=== PATIENT | male | born 1950 | race African-American/Black ===

== ENCOUNTER 2016-11-13 15:12 | Inpatient (IN) | payer OTHER, MEDICARE ==
[~2016-11-13] VITALS: Ht 182.9 cm; Wt 92.5 kg
[~2016-11-13 15:12] MED LIST: BACL10TA PO; CYCL10TA2 PO; DOCU-109 PO; GUAI5LIQ PO; GUAI600T47 PO; HYDR-2762 PO; IBUP-1060 PO; METO100T11 PO; METO25TA9 PO; OXYC10TA45 PO; SENN-22 PO; WARF10TA45 PO
[2016-11-13] MEDS ORDERED: IV NORMAL SALINE 1000ML BAG 1,000 ML IV SCH (15:49)
[2016-11-13] MEDS ORDERED: 0.9 % SODIUM CHLORIDE 10 ML DISP.SYRIN. IV PRN (16:00)
--- NOTE | 2016-11-13 16:02 | PHYS DOC ---
Past Medical History Past Medical History: Other Additional Past Medical Histor: valve problem, chronic back & leg pain Past Surgical History: Other Additional Past Surgical Histo: hernia repair x 2, cyst removed from neck, jaw surgery, mitral valve surger Additional Information: 1976 Alcohol Use: None Drug Use: None Adult General Chief Complaint Chief Complaint: RECTAL BLEED HPI HPI This patient is a pleasant 66-year-old male who is on chronic Coumadin and Lovenox secondary to mitral valve replacement. He presents with a potential GI bleed. Her this week he was seen and had a colonoscopy done by GI that discovered some denuded ulcers in his bowel that required bowel biopsy. It later came back the case was suffering from ischemic colitis. Patient now complains of melanotic stools with no abdominal pain, no dizziness, no chest pain, no UTI symptoms no other complains. He did stop his Coumadin and Lovenox for a colonoscopy and his last INR recorded was 1.4. Since that time he started his Coumadin again at 10 g daily. He denies any night sweats, weight loss, recent antibiotics, recent changes in medications other than his Coumadin, patient denies any trauma to his abdomen or sick contacts at home. Review of Systems Review of Systems Constitutional: Denies fever or chills [] Eyes: Denies change in visual acuity, redness, or eye pain [] HENT: Denies nasal congestion or sore throat [] Respiratory: Denies cough or shortness of breath [] Cardiovascular: No additional information not addressed in HPI [] GI: Denies abdominal pain, nausea, vomiting, he just denied any diarrhea but is complaining of dark tarry stools. : Denies dysuria or hematuria [] Musculoskeletal: Denies back pain or joint pain [] Integument: Denies rash or skin lesions [] Neurologic: Denies headache, focal weakness or sensory changes [] Endocrine: Denies polyuria or polydipsia [] Current Medications Current Medications Current Medications Medications (Trade) Dose Ordered Sig/Teresita Start Time Stop Time Status Last Admin Dose Admin Sodium Chloride (Normal Saline Flush) 10 ml QSHIFT PRN 11/13/16 16:00 11/13/16 16:17 10 ML Allergies Allergies Allergies Coded Allergies Type Severity Reaction Last Updated Verified No Known Drug Allergies 04/07/14 No Physical Exam Physical Exam Patient's vital signs are unremarkable. Constitutional: Well developed, well nourished, no acute distress, non-toxic appearance. [] HENT: Normocephalic, atraumatic, bilateral external ears normal, oropharynx moist, no oral exudates, nose normal. [] Eyes: PERRLA, EOMI, conjunctiva normal, no discharge. [] Neck: Normal range of motion, no tenderness, supple, no stridor. [] Cardiovascular:Heart rate regular rhythm, no murmur [] Lungs & Thorax: Bilateral breath sounds clear to auscultation [] Abdomen: Bowel sounds normal, soft, no tenderness, no masses, no pulsatile masses. Rectal exam shows dark melanotic school no rectal pain obvious signs rectal fissure and no hemorrhoids. Skin: Warm, dry, no erythema, no rash. [] Back: No tenderness, no CVA tenderness. [] Extremities: No tenderness, no cyanosis, no clubbing, ROM intact, no edema. [] Neurologic: Alert and oriented X 3, normal motor function, normal sensory function, no focal deficits noted. [] Psychologic: Affect normal, judgement normal, mood normal. [] Current Patient Data Vital Signs Vital Signs Date Time Temp Pulse Resp B/P (MAP) Pulse Ox O2 Delivery O2 Flow Rate FiO2 11/13/16 15:59 56 17 140/63 (88) 98 Room Air 11/13/16 15:25 98.5 98.5 Lab Values Laboratory Tests Test 11/13/16 15:35 White Blood Count 4.4 x10^3/uL (4.0-11.0) Red Blood Count 4.35 x10^6/uL (4.30-5.70) Hemoglobin 13.2 g/dL (13.0-17.5) Hematocrit 39.9 % (39.0-53.0) Mean Corpuscular Volume 92 fL (79-100) Mean Corpuscular Hemoglobin 30 pg (25-35) Mean Corpuscular Hemoglobin Concent 33 g/dL (31-37) Red Cell Distribution Width 13.2 % (11.5-14.5) Platelet Count 157 x10^3/uL (140-400) Neutrophils (%) (Auto) 40 % (31-73) Lymphocytes (%) (Auto) 45 % (24-48) Monocytes (%) (Auto) 13 % (0-9) H Eosinophils (%) (Auto) 2 % (0-3) Basophils (%) (Auto) 1 % (0-3) Neutrophils # (Auto) 1.8 x10^3uL (1.8-7.7) Lymphocytes # (Auto) 2.0 x10^3/uL (1.0-4.8) Monocytes # (Auto) 0.6 x10^3/uL (0.0-1.1) Eosinophils # (Auto) 0.1 x10^3/uL (0.0-0.7) Basophils # (Auto) 0.0 x10^3/uL (0.0-0.2) Prothrombin Time 18.0 SEC (11.7-14.0) H Prothrombin Time INR 1.6 (0.8-1.1) H PTT 40 SEC (24-38) H Stool Occult Blood Positive (NEG) Sodium Level 142 mmol/L (136-145) Potassium Level 3.9 mmol/L (3.5-5.1) Chloride Level 107 mmol/L (98-107) Carbon Dioxide Level 28 mmol/L (21-32) Anion Gap 7 (6-14) Blood Urea Nitrogen 13 mg/dL (8-26) Creatinine 0.9 mg/dL (0.7-1.3) Estimated GFR (Cockcroft-Gault) 102.5 Glucose Level 99 mg/dL (70-99) Calcium Level 8.8 mg/dL (8.5-10.1) Magnesium Level 2.2 mg/dL (1.8-2.4) Total Bilirubin 0.5 mg/dL (0.2-1.0) Direct Bilirubin 0.1 mg/dL (0.0-0.2) Aspartate Amino Transferase (AST) 23 U/L (15-37) Alanine Aminotransferase (ALT) 47 U/L (16-63) Alkaline Phosphatase 45 U/L (46-116) L Troponin I Quantitative < 0.017 ng/mL (0.000-0.055) NE-Mty-D-Type Natriuretic Peptide 120 pg/mL (0-124) Total Protein 7.0 g/dL (6.4-8.2) Albumin 3.7 g/dL (3.4-5.0) Lipase 169 U/L (73-393) Thyroid Stimulating Hormone (TSH) 1.866 uIU/mL (0.358-3.74) Laboratory Tests 11/13/16 15:35 Laboratory Tests 11/13/16 15:35 EKG EKG [] EKG timed 4:05 PM 11/13/2016 demonstrates an EKG with normal sinus rhythm and complete right bundle-branch block V1 with a RR prime patient has a heart rate of 59 which is within normal limits mild sinus bradycardia but atraumatic, WA interval is 184 which is normal QRS is 96 which is normal QTC is 436 which is normal. This is a normal EKG other than the incomplete right bundle # Radiology/Procedures Radiology/Procedures [] Course & Med Decision Making Course & Med Decision Making Pertinent Labs and Imaging studies reviewed. (See chart for details) he presented with potential upper GI bleed with melanotic stool. He also has a risks of GI bleed secondary to recent colonoscopy on Coumadin and Lovenox. He will have an appropriate GI bleeding workup to include type and screening possible bleeding given Protonix possibly octreotide if needed. [] GI physician Dr. CHAVES called us know he be arriving. Patient arrived with likely upper GI bleed there is a questionable history of ischemic colitis diagnosed by colonoscopy and local biopsy about the ulcers that were causing his wheezing. Patient is still present on Coumadin and Lovenox bridged for his mitral valve replacement therapy. Patient is a symptomatically this time no abdominal pain his hemoglobin and hematocrit are 13 and 41. He's got guaiac positive stool from below his INR is 1.6. Patient's abdomen is soft on repeat exams. Director Stage note: Internal medicine paged at 5 PM Director Stage called at of the service 5 p.m. Consult called back at 5:02 PM PM Discussed the case I presented and they agreed with admission. Time of acceptance o5:02 PM after discussing with internal medicine physician we did not start octreotide given the fact that he has no history of variceal bleeding. We did begin Protonix here in the emergency department as an IV bolus. Patient is typed and screened for blood if needed we will repeat CBCs over the course of the evening and have him follow these as well as prep him for another colonoscopy if necessary. Director Stage note: GI doctor Director Stage called at of the service ANDIE Consult called back at 5 PM Discussed the case I presented and they agreed with admission. 5 1 PM Anderson Disclaimer Dragon Disclaimer This electronic medical record was generated, in whole or in part, using a voice recognition dictation system. Departure Departure Impression: Primary Impression: GI bleed Disposition: ADMITTED INPATIENT Admitting Physician: Myriam Hayden Condition: GUARDED Referrals: ALON CONTRERAS Jr, MD (PCP) FROY ROGER MD Nov 13, 2016 16:02
[2016-11-13 16:09] LABS: BASO % 1 % (0-3); EOS % 2 % (0-3); HEMATOCRIT 39.9 % (39.0-53.0); HEMOGLOBIN 13.2 g/dL (13.0-17.5); LYMPH % 45 % (24-48); MEAN CORPUSCULAR HEMOGLOBIN 30 pg (25-35); MEAN CORPUSCULAR HGB CONC 33 g/dL (31-37); MEAN CORPUSCULAR VOLUME 92 fL (79-100); MONO % 13 % (0-9); NEUT % 40 % (31-73); PLATELET COUNT 157 x10^3/uL (140-400); RED BLOOD COUNT 4.35 x10^6/uL (4.30-5.70); RED CELL DISTRIBUTION WIDTH 13.2 % (11.5-14.5); WHITE BLOOD COUNT 4.4 x10^3/uL (4.0-11.0)
[2016-11-13] MEDS: 0.9 % SODIUM CHLORIDE 10 ML DISP.SYRIN. IV PRN ×2 (16:17→18:05)
[2016-11-13 16:20] LABS: INR 1.6 (0.8-1.1)
[2016-11-13 16:35] LABS: CALCIUM 8.8 mg/dL (8.5-10.1); CREATININE 0.9 mg/dL (0.7-1.3); GFR 102.5; POTASSIUM 3.9 mmol/L (3.5-5.1)
[2016-11-13 16:40] LABS: ALBUMIN 3.7 g/dL (3.4-5.0); DIRECT BILIRUBIN 0.1 mg/dL (0.0-0.2); MAGNESIUM 2.2 mg/dL (1.8-2.4); TOTAL BILIRUBIN 0.5 mg/dL (0.2-1.0)
[2016-11-13 16:45] LABS: BILIRUBIN,URINE NEGATIVE (NEG); GLUCOSE,URINE NEGATIVE (NEG); NITRITE,URINE NEGATIVE (NEG); PROTEIN,URINE NEGATIVE (NEG-TRACE)
[2016-11-13 16:46] LABS: NEG OBC FOB NEG; POS OBC FOB POS
[2016-11-13] MEDS ORDERED: PANTOPRAZOLE 40 MG TABLET.DR. PO ONE (17:15)
[2016-11-13 17:23] LABS: BACTERIA,URINE 0 /HPF (0-FEW); RBC,URINE 0 /HPF (0-2); SQUAMOUS EPITHELIAL CELL,UR FEW /LPF; WBC,URINE 0 /HPF (0-4)
[2016-11-13] MEDS ORDERED: FAMOTIDINE 20 MG/2 ML VIAL IVP ONE (17:30)
[2016-11-13] MEDS ORDERED: ONDANSETRON PF 4 MG/2 ML VIAL. IV PRN (18:30)
[2016-11-13 19:00] VITALS: BP 124/61
[2016-11-13 19:04] VITALS: BP 124/61
[2016-11-13] MEDS ORDERED: POLY17PO29 PO (19:59)
[2016-11-13] MEDS: IV NORMAL SALINE 1000ML BAG 1,000 ML IV SCH (20:00)
--- NOTE | 2016-11-13 20:11 | PDOC1 ---
History and Physical Date of Admission Date of Admission DATE: 11/13/16 TIME: 20:05 Identification/Chief Complaint Chief Complaint dark stools, Problems: Source Source: Chart review, Patient History of Present Illness History of Present Illness dark stools for 5 days, has recent scope by Dr. Ramírez, patient has history of ulcerative or ischemic colitis He presents with a potential GI bleed, recent colonoscopy w/ some denuded ulcers in his bowel that required bowel biopsy Patient now complains of melanotic stools with no abdominal pain, no dizziness , no chest pain, no UTI symptoms no other complains. no other change in history he has restarted his coumadin 10mg daily He has [facility] mitral valve replacement, and requires coumadin and is currently bridging with Lovenox, he works at the [employer] Past Medical History Cardiovascular: CHF, HTN, Hyperlipidemia, Valve insufficiency, Other Pulmonary: No pertinent hx CENTRAL NERVOUS SYSTEM: Other GI: No pertinent hx Heme/Onc: Anemia NOS, Other Hepatobiliary: No pertinent hx Psych: No pertinent hx Musculoskeletal: Osteoarthritis Rheumatologic: No pertinent hx Infectious disease: No pertinent hx Renal/: No pertinent hx Endocrine: No pertinent hx Past Surgical History Past Surgical History: Hernia Repair, Tonsillectomy, Other Family History Family History: No Significant Social History Smoke: Quit (40 yrs ago) ALCOHOL: rare Drugs: None Current Problem List Problem List Problems Medical Problems: (1) GI bleed Status: Acute Problems: Current Medications Current Medications Current Medications Sodium Chloride (Normal Saline Flush) 10 ml QSHIFT PRN IV AFTER MEDS AND BLOOD DRAWS Last administered on 11/13/16 18:05; Start 11/13/16 at 16:00 Sodium Chloride 1,000 ml @ 1,000 mls/hr Q1H IV Last administered on 11/13/16 16:18; Start 11/13/16 at 15:49; Stop 11/13/16 at 16:48; Status DC Sodium Chloride (Normal Saline Flush) 10 ml QSHIFT PRN IV AFTER MEDS AND BLOOD DRAWS Last administered on 11/13/16 16:17; Start 11/13/16 at 16:00 Pantoprazole Sodium (Protonix) 40 mg 1X ONCE PO ; Start 11/13/16 at 17:15; Stop 11/13/16 at 17:32; Status DC Famotidine (Pepcid) 20 mg 1X ONCE IVP Last administered on 11/13/16 18:05; Start 11/13/16 at 17:30; Stop 11/13/16 at 17:35; Status DC Ondansetron HCl (Zofran) 4 mg PRN Q8HRS PRN IV NAUSEA/VOMITING; Start 11/13/16 at 18:30; Stop 11/14/16 at 18:29 Sodium Chloride 1,000 ml @ 125 mls/hr Q8H IV Last administered on 11/13/16 20: 00; Start 11/13/16 at 18:20; Stop 11/14/16 at 18:19 Pantoprazole Sodium (Protonix) 40 mg DAILYAC PO ; Start 11/14/16 at 07:30 Active Scripts Active Senna-Time S Tablet (Sennosides/Docusate Sodium) 1 Each Tablet 1 Tab PO PRN BID PRN Metoprolol Succinate ( Xl ) (Metoprolol Succinate) 100 Mg Tab.er.24h 100 Mg PO DAILY Mucinex (Guaifenesin) 600 Mg Tablet.er 600 Mg PO BID Guaifenesin-Codeine Syrup (Guaifenesin/Codeine Phosphate) 5 Ml Liquid 5 Ml PO PRN Q6HRS PRN Colace (Docusate Sodium) 100 Mg Capsule 100 Mg PO PRN BID PRN Reported Miralax (Polyethylene Glycol 3350) 17 Gm Powd.pack 1 Packet PO DAILY Coumadin (Warfarin Sodium) 10 Mg Tablet 1 Tab PO DAILY Oxycontin (Oxycodone HCl) 10 Mg Tab.er.12h 1 Tab PO BID Baclofen 10 Mg Tablet 10 Mg PO QID Hydrocodone-Apap 7.5-325 (Hydrocodone Bit/Acetaminophen) 1 Each Tablet 1-2 Tab PO Q4-6HRS Allergies Allergies: Coded Allergies: No Known Drug Allergies (Unverified , 04/07/14) ROS General: No: Chills, Night Sweats, Fatigue, Malaise, Appetite, Other PSYCHOLOGICAL ROS: No: Anxiety, Behavioral Disorder, Concentration difficultie , Decreased libido, Depression, Disorientation, Hallucinations, Hostility, Irritablity, Memory difficulties, Mood Swings, Obsessive thoughts, Physical abuse, Sexual abuse, Sleep disturbances, Suicidal ideation, Other HEENT: No: Heacaches, Visual Changes, Hearing change, Nasal congestion, Nasal discharge, Oral lesions, Sinus pain, Sore Throat, Epistaxis, Sneezing, Snoring, Tinnitus, Vertigo, Vocal changes, Other Respiratory: No: Cough, Hemoptysis, Orthopnea, Pleuritic Pain, Shortness of breath, SOB with excertion, Sputum Changes, Stridor, Tachypnea, Wheezing, Other Cardiovascular: No Chest Pain, No Palpitations, No Orthopnea, No Paroxysmal Noc. Dyspnea, No Edema, No Lt Headedness, No Other Gastrointestinal: Yes Melena, No Nausea, No Vomiting, No Abdominal Pain, No Diarrhea, No Constipation, No Hematochezia, No Other Genitourinary: No Dysuria, No Frequency, No Incontinence, No Hematuria, No Retention, No Discharge, No Urgency, No Pain, No Flank Pain, No Other, No , No , No , No , No , No , No Musculoskeletal: No Gait Disturbance, No Joint Pain, No Joint Stiffness, No Joint Swelling, No Muscle Pain, No Muscular Weakness, No Pain In:, No Swelling In:, No Other Neurological: No Behavorial Changes, No Bowel/Bladder ControlChng, No Confusion , No Dizziness, No Gait Disturbance, No Headaches, No Impaired Coord/balance, No Memory Loss, No Numbness/Tingling, No Seizures, No Speech Problems, No Tremors, No Visual Changes, No Weakness, No Other Skin: No Dry Skin, No Eczema, No Hair Changes, No Lumps, No Mole Changes, No Mottling, No Nail Changes, No Pruritus, No Rash, No Skin Lesion Changes, No Other, No Acne Physical Exam General: Alert, Oriented X3, Cooperative, No acute distress HEENT: Atraumatic, PERRLA, EOMI, Mucous membr. moist/pink Lungs: Clear to auscultation, Normal air movement Heart: no gallops, no murmurs Abdomen: Normal bowel sounds, Soft Rectal Exam: not examined Extremities: No clubbing, No edema, Normal pulses Skin: No rashes, No significant lesion Neuro: Normal speech, Normal tone, Sensation intact, Cranial nerves 3-12 NL Psych/Mental Status: Mental status NL, Mood NL Vitals Vitals Vital Signs Date Time Temp Pulse Resp B/P (MAP) Pulse Ox O2 Delivery O2 Flow Rate FiO2 11/13/16 19:04 98.9 50 16 124/61 (82) 94 Room Air 98.9 Labs Labs Laboratory Tests Test 11/13/16 15:35 11/13/16 16:30 White Blood Count 4.4 x10^3/uL (4.0-11.0) Red Blood Count 4.35 x10^6/uL (4.30-5.70) Hemoglobin 13.2 g/dL (13.0-17.5) Hematocrit 39.9 % (39.0-53.0) Mean Corpuscular Volume 92 fL (79-100) Mean Corpuscular Hemoglobin 30 pg (25-35) Mean Corpuscular Hemoglobin Concent 33 g/dL (31-37) Red Cell Distribution Width 13.2 % (11.5-14.5) Platelet Count 157 x10^3/uL (140-400) Neutrophils (%) (Auto) 40 % (31-73) Lymphocytes (%) (Auto) 45 % (24-48) Monocytes (%) (Auto) 13 % (0-9) Eosinophils (%) (Auto) 2 % (0-3) Basophils (%) (Auto) 1 % (0-3) Neutrophils # (Auto) 1.8 x10^3uL (1.8-7.7) Lymphocytes # (Auto) 2.0 x10^3/uL (1.0-4.8) Monocytes # (Auto) 0.6 x10^3/uL (0.0-1.1) Eosinophils # (Auto) 0.1 x10^3/uL (0.0-0.7) Basophils # (Auto) 0.0 x10^3/uL (0.0-0.2) Prothrombin Time 18.0 SEC (11.7-14.0) Prothromb Time International Ratio 1.6 (0.8-1.1) Activated Partial Thromboplast Time 40 SEC (24-38) Stool Occult Blood Positive (NEG) Sodium Level 142 mmol/L (136-145) Potassium Level 3.9 mmol/L (3.5-5.1) Chloride Level 107 mmol/L (98-107) Carbon Dioxide Level 28 mmol/L (21-32) Anion Gap 7 (6-14) Blood Urea Nitrogen 13 mg/dL (8-26) Creatinine 0.9 mg/dL (0.7-1.3) Estimated GFR (Cockcroft-Gault) 102.5 Glucose Level 99 mg/dL (70-99) Calcium Level 8.8 mg/dL (8.5-10.1) Magnesium Level 2.2 mg/dL (1.8-2.4) Total Bilirubin 0.5 mg/dL (0.2-1.0) Direct Bilirubin 0.1 mg/dL (0.0-0.2) Aspartate Amino Transf (AST/SGOT) 23 U/L (15-37) Alanine Aminotransferase (ALT/SGPT) 47 U/L (16-63) Alkaline Phosphatase 45 U/L (46-116) Troponin I Quantitative < 0.017 ng/mL (0.000-0.055) VX-Ogj-S-Type Natriuretic Peptide 120 pg/mL (0-124) Total Protein 7.0 g/dL (6.4-8.2) Albumin 3.7 g/dL (3.4-5.0) Lipase 169 U/L (73-393) Thyroid Stimulating Hormone (TSH) 1.866 uIU/mL (0.358-3.74) Urine Collection Type Unknown Urine Color Yellow Urine Clarity Clear Urine pH 7.0 Urine Specific [place] 1.010 Urine Protein Negative mg/dL (NEG-TRACE) Urine Glucose (UA) Negative mg/dL (NEG) Urine Ketones (Stick) Negative mg/dL (NEG) Urine Blood Negative (NEG) Urine Nitrite Negative (NEG) Urine Bilirubin Negative (NEG) Urine Urobilinogen Dipstick 1.0 mg/dL (0.2 mg/dL) Urine Leukocyte Esterase Trace (NEG) Urine RBC 0 /HPF (0-2) Urine WBC 0 /HPF (0-4) Urine Squamous Epithelial Cells Few /LPF Urine Bacteria 0 /HPF (0-FEW) Urine Mucus Slight /LPF Laboratory Tests Test 11/13/16 15:35 11/13/16 16:30 White Blood Count 4.4 x10^3/uL (4.0-11.0) Red Blood Count 4.35 x10^6/uL (4.30-5.70) Hemoglobin 13.2 g/dL (13.0-17.5) Hematocrit 39.9 % (39.0-53.0) Mean Corpuscular Volume 92 fL (79-100) Mean Corpuscular Hemoglobin 30 pg (25-35) Mean Corpuscular Hemoglobin Concent 33 g/dL (31-37) Red Cell Distribution Width 13.2 % (11.5-14.5) Platelet Count 157 x10^3/uL (140-400) Neutrophils (%) (Auto) 40 % (31-73) Lymphocytes (%) (Auto) 45 % (24-48) Monocytes (%) (Auto) 13 % (0-9) Eosinophils (%) (Auto) 2 % (0-3) Basophils (%) (Auto) 1 % (0-3) Neutrophils # (Auto) 1.8 x10^3uL (1.8-7.7) Lymphocytes # (Auto) 2.0 x10^3/uL (1.0-4.8) Monocytes # (Auto) 0.6 x10^3/uL (0.0-1.1) Eosinophils # (Auto) 0.1 x10^3/uL (0.0-0.7) Basophils # (Auto) 0.0 x10^3/uL (0.0-0.2) Prothrombin Time 18.0 SEC (11.7-14.0) Prothromb Time International Ratio 1.6 (0.8-1.1) Activated Partial Thromboplast Time 40 SEC (24-38) Stool Occult Blood Positive (NEG) Sodium Level 142 mmol/L (136-145) Potassium Level 3.9 mmol/L (3.5-5.1) Chloride Level 107 mmol/L (98-107) Carbon Dioxide Level 28 mmol/L (21-32) Anion Gap 7 (6-14) Blood Urea Nitrogen 13 mg/dL (8-26) Creatinine 0.9 mg/dL (0.7-1.3) Estimated GFR (Cockcroft-Gault) 102.5 Glucose Level 99 mg/dL (70-99) Calcium Level 8.8 mg/dL (8.5-10.1) Magnesium Level 2.2 mg/dL (1.8-2.4) Total Bilirubin 0.5 mg/dL (0.2-1.0) Direct Bilirubin 0.1 mg/dL (0.0-0.2) Aspartate Amino Transf (AST/SGOT) 23 U/L (15-37) Alanine Aminotransferase (ALT/SGPT) 47 U/L (16-63) Alkaline Phosphatase 45 U/L (46-116) Troponin I Quantitative < 0.017 ng/mL (0.000-0.055) PT-Uih-X-Type Natriuretic Peptide 120 pg/mL (0-124) Total Protein 7.0 g/dL (6.4-8.2) Albumin 3.7 g/dL (3.4-5.0) Lipase 169 U/L (73-393) Thyroid Stimulating Hormone (TSH) 1.866 uIU/mL (0.358-3.74) Urine Collection Type Unknown Urine Color Yellow Urine Clarity Clear Urine pH 7.0 Urine Specific [place] 1.010 Urine Protein Negative mg/dL (NEG-TRACE) Urine Glucose (UA) Negative mg/dL (NEG) Urine Ketones (Stick) Negative mg/dL (NEG) Urine Blood Negative (NEG) Urine Nitrite Negative (NEG) Urine Bilirubin Negative (NEG) Urine Urobilinogen Dipstick 1.0 mg/dL (0.2 mg/dL) Urine Leukocyte Esterase Trace (NEG) Urine RBC 0 /HPF (0-2) Urine WBC 0 /HPF (0-4) Urine Squamous Epithelial Cells Few /LPF Urine Bacteria 0 /HPF (0-FEW) Urine Mucus Slight /LPF VTE Prophylaxis Ordered VTE Prophylaxis Devices: No VTE Pharmacological Prophylaxi: Yes Assessment/Plan Assessment/Plan ulcerative colitis, with possible flare due to bleeding, melena per rectum without anemia s/p mitral valve replacement, req. Coumadin or lovenox, hold both, do Heparin gtt overnight, CV consult to eval valve, may need echo, valve is quiet on exam, need anticoag despite possible blood loss, which may be modest, RAJI BRUCE MD Nov 13, 2016 20:11
[2016-11-13] MEDS ORDERED: HEPARIN for IV BOLUS 10,000 UNIT/10 ML VIAL. IV PRN (20:15)
--- NOTE | 2016-11-13 20:50 | EKG ---
[facility] [address] [place] [address] Test Date: 2016-11-13 Test Time: 16:05:40 Pat Name: BRANDEN BROWN Department: Room: 402 1 Gender: M Membership Director: : [id number] Requested By: FROY ROGER Order Number: [id number] Reading MD: Steven Michelle Measurements Intervals [place] Rate: 59 P: -48 VT: 184 QRS: 87 QRSD: 96 T: 30 QT: 436 QTc: 436 Interpretive Statements SINUS RHYTHM INCOMPLETE RIGHT BUNDLE BRANCH BLOCK NONSPECIFIC ST-T WAVE CHANGES. RI6.01 Compared to ECG 07/29/2015 09:58:31 Electronically Signed On 11-21-2016 9:00:21 CDT by Steven Michelle
[2016-11-13 21:14] LABS: HEMATOCRIT 39.8 % (39.0-53.0); RED BLOOD COUNT 4.31 x10^6/uL (4.30-5.70); RED CELL DISTRIBUTION WIDTH 13.5 % (11.5-14.5); WHITE BLOOD COUNT 5.1 x10^3/uL (4.0-11.0)
[2016-11-13] MEDS ORDERED: DOCUSATE SODIUM 100 MG CAPSULE. PO PRN (21:45)
[2016-11-13] MEDS ORDERED: SENNOSIDES/DOCUSATE 8.6/50MG TABLET. PO PRN (21:45)
[2016-11-13] MEDS: BACLOFEN 10 MG TABLET. PO SCH (22:15)
[2016-11-13] MEDS: HYDROcodone/APAP 7.5/325MG 1 TAB TABLET PO PRN (22:15)
[2016-11-13] MEDS: HEPARIN 25,000UTS/500ML PREMIX 500 ML IV PRN (22:31)
[2016-11-13 23:00] VITALS: BP 110/53
[2016-11-14] VITALS (7 sets, daily range): BP systolic 121–139; BP diastolic 49–71
[2016-11-14] MEDS: HYDROcodone/APAP 7.5/325MG 1 TAB TABLET PO PRN ×3 (03:43→20:41)
[2016-11-14] MEDS: IV NORMAL SALINE 1000ML BAG 1,000 ML IV SCH ×2 (03:43→11:37)
[2016-11-14 05:34] LABS: BASO % 1 % (0-3); EOS % 2 % (0-3); HEMATOCRIT 37.7 % (39.0-53.0); HEMOGLOBIN 12.2 g/dL (13.0-17.5); LYMPH # 1.5 x10^3/uL (1.0-4.8); LYMPH % 36 % (24-48); MEAN CORPUSCULAR HEMOGLOBIN 30 pg (25-35); MEAN CORPUSCULAR HGB CONC 32 g/dL (31-37); MEAN CORPUSCULAR VOLUME 93 fL (79-100); MONO % 13 % (0-9); NEUT % 49 % (31-73); PLATELET COUNT 141 x10^3/uL (140-400); RED BLOOD COUNT 4.06 x10^6/uL (4.30-5.70); RED CELL DISTRIBUTION WIDTH 13.4 % (11.5-14.5); WHITE BLOOD COUNT 4.1 x10^3/uL (4.0-11.0)
--- NOTE | 2016-11-14 05:47 | ACF ---
Admission Forms Criteria GASTROINTESTINAL BLEEDING, LOWER Clinical Indications for Admission to Inpatient Care ( Place 'X' for any and all applicable criteria): Admission is indicated for ANY ONE of the following(1)(2)(3)(4)(5): [ ]I. Active gross bleeding per rectum [ ]II. Inpatient admission required rather than observation care (Also use Gastrointestinal Bleeding, Lower: Observation Care as appropriate) because of ANY ONE of the following: [ ]a) Hemodynamic instability that is severe or persistent [ ]b) Anemia requiring inpatient admission as indicated by ALL of the following: [ ]1) Presence of significant clinical finding indicated by ANY ONE of the following: [ ]A. Tachycardia for age [ ]B. Orthostatic vital sign changes [ ]C. Cognitive impairment [ ]D. Heart failure [ ]E. Chest pain [ ]F. Exertional dyspnea [ ]G. Other findings suggesting inadequate perfusion (eg, peripheral or myocardial ischemia, end organ dysfunction) [ ]2) Initial (eg, emergency department, observation care) treatment with transfusion or volume replacement is judged inappropriate (due to severity of the finding) or has been ineffective [ ]c) Severe pain requiring acute inpatient management [ ]d) Absent bowel sounds with complete ileus [ ]e) Signs of intestinal obstruction or peritonitis [A] [ ]f) High-risk low platelet count [ ]g) Severe electrolyte abnormalities requiring inpatient care [ ]h) Acute renal failure [ ]i) High fever or infection requiring inpatient admission as indicated by ANY ONE of the following(8)(9): [ ]1) Appropriate outpatient or observation care antimicrobial treatment unavailable, not effective, or not feasible Documented bacteremia [ ]2) Documented bacteremia [ ]3) Temperature greater than 104.9 degrees F ( 40.5 degrees C) (oral) [ ]4) Temperature greater than 103.1 degrees F ( 39.5 degrees C) (oral) or less than 96.8 degrees F (36 degrees C) (rectal) that does not respond to all emergency treatment measures [ ]j) IV fluid to replace significant ongoing losses ( greater than 3 L/m2 per day) [ ]k) Immediate inpatient surgery needed [ ]l) Parenteral nutrition regimen that must be implemented on inpatient basis [ ]m) Other condition, treatment or monitoring requiring inpatient admission [ ]III. Unstable comorbid illness (renal, hepatic, pulmonary, hematologic, neurologic, or cardiac) [ ]IV. Failure to control bleeding after colonoscopy [ ]V. Coagulopathy [ X]. Suspected or known ischemic colitis(6) [ ]VII. Previous aortic graft placement or known aortic aneurysm Extended stay beyond goal length of stay may be needed for(3)(4)(28): [ ]a) Emergency surgery [ ]b) Coagulation abnormalities(26) [ ]c) Recurrent or persistent bleeding, continued vital sign instability(27)( 28) [ ]d) Active comorbidities (eg, renal insufficiency, heart failure, pre- existing liver disease) The original [employer] [facility] content created by [employer] has been revised. The portions of the content which have been revised are identified through the use of italic text or in bold, and [facility] has neither reviewed nor approved the modified material. All other unmodified content is copyright [employer] [facility]. Please see references footnoted in the original [employer] [facility] edition 2016 Admission Criteria Met?: Yes YOLANDA BALDERRAMA Nov 14, 2016 05:47
[2016-11-14 05:48] LABS: ALBUMIN 3.1 g/dL (3.4-5.0); CALCIUM 8.6 mg/dL (8.5-10.1); GFR 90.7; POTASSIUM 4.3 mmol/L (3.5-5.1); TOTAL BILIRUBIN 0.5 mg/dL (0.2-1.0); TOTAL PROTEIN 6.1 g/dL (6.4-8.2)
[2016-11-14 05:51] LABS: INR 1.6 (0.8-1.1); PROTHROMBIN TIME PATIENT 17.7 SEC (11.7-14.0)
[2016-11-14] MEDS: PANTOPRAZOLE 40 MG TABLET.DR. PO SCH (07:30)
[2016-11-14] MEDS: POLYETHYLENE GLYCOL 3350 17 GM PACKET. PO SCH (08:37)
[2016-11-14] MEDS: BACLOFEN 10 MG TABLET. PO SCH ×3 (08:37→20:42)
--- NOTE | 2016-11-14 09:58 | PDOC2 ---
GI CONSULT Reason For Consult: GI Bleed HPI: HPI: 66 y/o male who had screening colonoscopy w/ Dr. Ramírez 1 week ago, was told he had an ulcer related to retained stool. Prior to procedure had no GI symptoms, last Monday had 2 black stools, continued to Monday which is where he last had a bowel movement. H/o MVR, was on Coumadin and Lovenox after colonoscopy. Has noted bruising and soreness on abdomen 2/2 injections. Hgb was 13.2, now 12.1, INR 1.6, normal indices w/ normal BUN and Cr. Hemoccult was positive. H/ o constipation usually improved w/ Miralax. No n/v, reflux/heartburn, dysphagia , abd pain, change in appetite, bloating, weight loss, or hematochezia. No previous EGD. No NSAID use. Started on PO PPI here, kept NPO this morning. PMH: PMH: CHF, HTN, HLD, OA, MVR, back surgery, bilateral inguinal hernia repair, tonsillectomy, cyst removal from chest/neck FH: Family History: No pertinent hx, Other Social History: Smoke: Quit ALCOHOL: rare Drugs: None ROS: GEN: Denies fevers, chills, sweats HEENT: Denies blurred vision, sore throat CV: Denies chest pain RESP: Denies shortness of air, cough GI: Per HPI : Denies hematuria, dysuria ENDO: Denies weight changes NEURO: Denies confusion, dizziness MSK: Denies weakness, joint pain/swelling SKIN: Denies jaundice, pruritus Vitals: Vitals: Vital Signs Date Time Temp Pulse Resp B/P (MAP) Pulse Ox O2 Delivery O2 Flow Rate FiO2 11/14/16 08:43 16 11/14/16 07:00 97.9 57 122/55 (77) 97 Room Air 97.9 Labs: Labs: Laboratory Tests Test 11/13/16 15:35 11/13/16 16:30 11/13/16 21:00 11/14/16 05:00 White Blood Count 4.4 x10^3/uL (4.0-11.0) 5.1 x10^3/uL (4.0-11.0) 4.1 x10^3/uL (4.0-11.0) Red Blood Count 4.35 x10^6/uL (4.30-5.70) 4.31 x10^6/uL (4.30-5.70) 4.06 x10^6/uL (4.30-5.70) Hemoglobin 13.2 g/dL (13.0-17.5) 13.0 g/dL (13.0-17.5) 12.2 g/dL (13.0-17.5) Hematocrit 39.9 % (39.0-53.0) 39.8 % (39.0-53.0) 37.7 % (39.0-53.0) Mean Corpuscular Volume 92 fL (79-100) 92 fL (79-100) 93 fL (79-100) Mean Corpuscular Hemoglobin 30 pg (25-35) 30 pg (25-35) 30 pg (25-35) Mean Corpuscular Hemoglobin Concent 33 g/dL (31-37) 33 g/dL (31-37) 32 g/dL (31-37) Red Cell Distribution Width 13.2 % (11.5-14.5) 13.5 % (11.5-14.5) 13.4 % (11.5-14.5) Platelet Count 157 x10^3/uL (140-400) 147 x10^3/uL (140-400) 141 x10^3/uL (140-400) Neutrophils (%) (Auto) 40 % (31-73) 49 % (31-73) Lymphocytes (%) (Auto) 45 % (24-48) 36 % (24-48) Monocytes (%) (Auto) 13 % (0-9) 13 % (0-9) Eosinophils (%) (Auto) 2 % (0-3) 2 % (0-3) Basophils (%) (Auto) 1 % (0-3) 1 % (0-3) Neutrophils # (Auto) 1.8 x10^3uL (1.8-7.7) 2.0 x10^3uL (1.8-7.7) Lymphocytes # (Auto) 2.0 x10^3/uL (1.0-4.8) 1.5 x10^3/uL (1.0-4.8) Monocytes # (Auto) 0.6 x10^3/uL (0.0-1.1) 0.5 x10^3/uL (0.0-1.1) Eosinophils # (Auto) 0.1 x10^3/uL (0.0-0.7) 0.1 x10^3/uL (0.0-0.7) Basophils # (Auto) 0.0 x10^3/uL (0.0-0.2) 0.0 x10^3/uL (0.0-0.2) Prothrombin Time 18.0 SEC (11.7-14.0) 17.7 SEC (11.7-14.0) Prothromb Time International Ratio 1.6 (0.8-1.1) 1.6 (0.8-1.1) Activated Partial Thromboplast Time 40 SEC (24-38) Stool Occult Blood Positive (NEG) Sodium Level 142 mmol/L (136-145) 143 mmol/L (136-145) Potassium Level 3.9 mmol/L (3.5-5.1) 4.3 mmol/L (3.5-5.1) Chloride Level 107 mmol/L (98-107) 109 mmol/L (98-107) Carbon Dioxide Level 28 mmol/L (21-32) 28 mmol/L (21-32) Anion Gap 7 (6-14) 6 (6-14) Blood Urea Nitrogen 13 mg/dL (8-26) 13 mg/dL (8-26) Creatinine 0.9 mg/dL (0.7-1.3) 1.0 mg/dL (0.7-1.3) Estimated GFR (Cockcroft-Gault) 102.5 90.7 Glucose Level 99 mg/dL (70-99) 101 mg/dL (70-99) Calcium Level 8.8 mg/dL (8.5-10.1) 8.6 mg/dL (8.5-10.1) Magnesium Level 2.2 mg/dL (1.8-2.4) Total Bilirubin 0.5 mg/dL (0.2-1.0) 0.5 mg/dL (0.2-1.0) Direct Bilirubin 0.1 mg/dL (0.0-0.2) Aspartate Amino Transf (AST/SGOT) 23 U/L (15-37) 19 U/L (15-37) Alanine Aminotransferase (ALT/SGPT) 47 U/L (16-63) 35 U/L (16-63) Alkaline Phosphatase 45 U/L (46-116) 37 U/L (46-116) Troponin I Quantitative < 0.017 ng/mL (0.000-0.055) YU-Pey-S-Type Natriuretic Peptide 120 pg/mL (0-124) Total Protein 7.0 g/dL (6.4-8.2) 6.1 g/dL (6.4-8.2) Albumin 3.7 g/dL (3.4-5.0) 3.1 g/dL (3.4-5.0) Lipase 169 U/L (73-393) Thyroid Stimulating Hormone (TSH) 1.866 uIU/mL (0.358-3.74) Urine Collection Type Unknown Urine Color Yellow Urine Clarity Clear Urine pH 7.0 Urine Specific [place] 1.010 Urine Protein Negative mg/dL (NEG-TRACE) Urine Glucose (UA) Negative mg/dL (NEG) Urine Ketones (Stick) Negative mg/dL (NEG) Urine Blood Negative (NEG) Urine Nitrite Negative (NEG) Urine Bilirubin Negative (NEG) Urine Urobilinogen Dipstick 1.0 mg/dL (0.2 mg/dL) Urine Leukocyte Esterase Trace (NEG) Urine RBC 0 /HPF (0-2) Urine WBC 0 /HPF (0-4) Urine Squamous Epithelial Cells Few /LPF Urine Bacteria 0 /HPF (0-FEW) Urine Mucus Slight /LPF Heparin Anti-Xa Act, Unfractionated 0.75 IU/mL (0.30-0.70) 0.67 IU/mL (0.30-0.70) BUN/Creatinine Ratio 13 (6-20) Albumin/Globulin Ratio 1.0 (1.0-1.7) Allergies: Coded Allergies: No Known Drug Allergies (Unverified , 04/07/14) Medications: Current Medications Medications (Trade) Dose Ordered Sig/Teresita Route PRN Reason Start Time Stop Time Status Last Admin Dose Admin Sodium Chloride (Normal Saline Flush) 10 ml QSHIFT PRN IV AFTER MEDS AND BLOOD DRAWS 11/13/16 16:00 11/13/16 18:05 Sodium Chloride 1,000 ml @ 1,000 mls/hr Q1H IV 11/13/16 15:49 11/13/16 16:48 DC 11/13/16 16:18 Sodium Chloride (Normal Saline Flush) 10 ml QSHIFT PRN IV AFTER MEDS AND BLOOD DRAWS 11/13/16 16:00 11/13/16 16:17 Famotidine (Pepcid) 20 mg 1X ONCE IVP 11/13/16 17:30 11/13/16 17:35 DC 11/13/16 18:05 Sodium Chloride 1,000 ml @ 125 mls/hr Q8H IV 11/13/16 18:20 11/14/16 18:19 11/14/16 03:43 Heparin Sodium/ Dextrose 500 ml @ 0 mls/hr CONT PRN IV SEE I/O RECORD 11/13/16 20:15 11/13/16 22:31 Baclofen (Lioresal) 10 mg QID PO 11/13/16 22:00 11/13/16 22:15 Acetaminophen/ Hydrocodone Bitart (Lortab 7.5/325) 2 tab PRN Q4HRS PRN PO SEVERE PAIN 11/13/16 21:45 11/14/16 08:43 PE: GEN: NAD HEENT: Atraumatic, PERRL LUNGS: CTAB anteriorly HEART: RRR +murm ABD: NABS, S/ND/NT EXTREMITY: No edema SKIN: +bruising NEURO/PSYCH: A & O 3 A/P: A/P: Dark stools, hemoccult positive stool -onset last Mon, last stool Fri -Hgb from 13.2 to 12.2, normal BUN H/o MVR, most recently on Coumadin and Lovenox CRC screen -colonoscopy w/ Dr. Ramírez last week, seems likely had stercoral ulcer w/ h/o occasional constipation -- EGD tonight r/o upper GI source. ZENA GU Nov 14, 2016 09:58
--- NOTE | 2016-11-14 10:14 | PDOC2 ---
FREDERICK MCKEON [employer] 11/14/16 1014: CARDIAC CONSULT DATE OF CONSULT Date of Consult DATE: 11/14/16 TIME: 10:06 REASON FOR CONSULT Reason for Consult: Mitral valve replacement, GI Bleed REFERRING PHYSICIAN Referring Physician: Catracho SOURCE Source: Chart review, Patient HISTORY OF PRESENT ILLNESS HISTORY OF PRESENT ILLNESS This is a pleasant 66 yo male admitted for complains of black stools. Pt had a routine colonoscopy over a week ago and was noted to have ulcers in his bowel, possible colitis. Monday last week he started having black stools and continued on prompting him to come in and be admitted. He has mechanical mitral valve and he also has paroxysmal atrial flutter and chronic anticoagulation with coumadin. He stopped his coumadin last Monday. He was admitted and was started on heparin. Denies any SOA, CP, dizziness or palpitations. He saw his lamination spinner last month and echo was done and was told that he is doing well and his valve is good. Currently he is being workup by GI and denies any complaints. PAST MEDICAL HISTORY Past Medical History Cardiovascular: CHF, HTN, Hyperlipidemia, Valve insufficiency, Other (possible rheumatic disease as a child), atrial clutter Pulmonary: No pertinent hx CENTRAL NERVOUS SYSTEM: Other (No pertinent history) GI: No pertinent hx Heme/Onc: Anemia NOS, Other (chronic anticoagulation) Hepatobiliary: No pertinent hx Psych: No pertinent hx Musculoskeletal: Osteoarthritis, low back pain Rheumatologic: No pertinent hx Infectious disease: No pertinent hx ENT: Other (cold) Renal/: No pertinent hx Endocrine: No pertinent hx Dermatology: No pertinent hx PAST SURGICAL HISTORY Past Surgical History Hernia Repair (bilateral inguinal ), Tonsillectomy, Other (mechanical mitral valve placement 12/2014; jaw surgery), prior cardioversion 2015 FAMILY HISTORY Family History noncontributory to CV SOCIAL HISTORY Smoke: No ALCOHOL: none Lives: with Family CURRENT MEDICATIONS CURRENT MEDICATIONS Current Medications Medications (Trade) Dose Ordered Sig/Teresita Route PRN Reason Start Time Stop Time Status Last Admin Dose Admin Sodium Chloride (Normal Saline Flush) 10 ml QSHIFT PRN IV AFTER MEDS AND BLOOD DRAWS 11/13/16 16:00 11/13/16 18:05 Sodium Chloride 1,000 ml @ 1,000 mls/hr Q1H IV 11/13/16 15:49 11/13/16 16:48 DC 11/13/16 16:18 Sodium Chloride (Normal Saline Flush) 10 ml QSHIFT PRN IV AFTER MEDS AND BLOOD DRAWS 11/13/16 16:00 11/13/16 16:17 Famotidine (Pepcid) 20 mg 1X ONCE IVP 11/13/16 17:30 11/13/16 17:35 DC 11/13/16 18:05 Sodium Chloride 1,000 ml @ 125 mls/hr Q8H IV 11/13/16 18:20 11/14/16 18:19 11/14/16 03:43 Heparin Sodium/ Dextrose 500 ml @ 0 mls/hr CONT PRN IV SEE I/O RECORD 11/13/16 20:15 11/13/16 22:31 Baclofen (Lioresal) 10 mg QID PO 11/13/16 22:00 11/13/16 22:15 Acetaminophen/ Hydrocodone Bitart (Lortab 7.5/325) 2 tab PRN Q4HRS PRN PO SEVERE PAIN 11/13/16 21:45 11/14/16 08:43 ALLERGIES ALLERGIES: Coded Allergies: No Known Drug Allergies (Unverified , 11/14/16) ROS Review of System 14 point ROS evaluated with pertinent positives noted per HPI PHYSICAL EXAM General: Alert, Oriented X3, Cooperative, No acute distress HEENT: Atraumatic, Mucous membr. moist/pink Lungs: Clear to auscultation, Normal air movement Heart: Regular rate (SR), Normal S1, Normal S2, Other (3/6 systolic murmur to TEJAL border; ejection click audible per ausculatation) Abdomen: Soft, No tenderness Extremities: No cyanosis, No edema Skin: No breakdown, No significant lesion Neuro: Normal speech, Sensation intact Psych/Mental Status: Mental status NL, Mood NL MUSCULOSKELETAL: Osteoarthritic changes both hands VITALS VITALS Vital Signs Date Time Temp Pulse Resp B/P (MAP) Pulse Ox O2 Delivery O2 Flow Rate FiO2 11/14/16 08:43 16 11/14/16 07:00 97.9 57 122/55 (77) 97 Room Air 97.9 LABS Lab: Laboratory Tests Test 11/13/16 15:35 11/13/16 16:30 11/13/16 21:00 11/14/16 05:00 White Blood Count 4.4 x10^3/uL (4.0-11.0) 5.1 x10^3/uL (4.0-11.0) 4.1 x10^3/uL (4.0-11.0) Red Blood Count 4.35 x10^6/uL (4.30-5.70) 4.31 x10^6/uL (4.30-5.70) 4.06 x10^6/uL (4.30-5.70) Hemoglobin 13.2 g/dL (13.0-17.5) 13.0 g/dL (13.0-17.5) 12.2 g/dL (13.0-17.5) Hematocrit 39.9 % (39.0-53.0) 39.8 % (39.0-53.0) 37.7 % (39.0-53.0) Mean Corpuscular Volume 92 fL (79-100) 92 fL (79-100) 93 fL (79-100) Mean Corpuscular Hemoglobin 30 pg (25-35) 30 pg (25-35) 30 pg (25-35) Mean Corpuscular Hemoglobin Concent 33 g/dL (31-37) 33 g/dL (31-37) 32 g/dL (31-37) Red Cell Distribution Width 13.2 % (11.5-14.5) 13.5 % (11.5-14.5) 13.4 % (11.5-14.5) Platelet Count 157 x10^3/uL (140-400) 147 x10^3/uL (140-400) 141 x10^3/uL (140-400) Neutrophils (%) (Auto) 40 % (31-73) 49 % (31-73) Lymphocytes (%) (Auto) 45 % (24-48) 36 % (24-48) Monocytes (%) (Auto) 13 % (0-9) 13 % (0-9) Eosinophils (%) (Auto) 2 % (0-3) 2 % (0-3) Basophils (%) (Auto) 1 % (0-3) 1 % (0-3) Neutrophils # (Auto) 1.8 x10^3uL (1.8-7.7) 2.0 x10^3uL (1.8-7.7) Lymphocytes # (Auto) 2.0 x10^3/uL (1.0-4.8) 1.5 x10^3/uL (1.0-4.8) Monocytes # (Auto) 0.6 x10^3/uL (0.0-1.1) 0.5 x10^3/uL (0.0-1.1) Eosinophils # (Auto) 0.1 x10^3/uL (0.0-0.7) 0.1 x10^3/uL (0.0-0.7) Basophils # (Auto) 0.0 x10^3/uL (0.0-0.2) 0.0 x10^3/uL (0.0-0.2) Prothrombin Time 18.0 SEC (11.7-14.0) 17.7 SEC (11.7-14.0) Prothromb Time International Ratio 1.6 (0.8-1.1) 1.6 (0.8-1.1) Activated Partial Thromboplast Time 40 SEC (24-38) Stool Occult Blood Positive (NEG) Sodium Level 142 mmol/L (136-145) 143 mmol/L (136-145) Potassium Level 3.9 mmol/L (3.5-5.1) 4.3 mmol/L (3.5-5.1) Chloride Level 107 mmol/L (98-107) 109 mmol/L (98-107) Carbon Dioxide Level 28 mmol/L (21-32) 28 mmol/L (21-32) Anion Gap 7 (6-14) 6 (6-14) Blood Urea Nitrogen 13 mg/dL (8-26) 13 mg/dL (8-26) Creatinine 0.9 mg/dL (0.7-1.3) 1.0 mg/dL (0.7-1.3) Estimated GFR (Cockcroft-Gault) 102.5 90.7 Glucose Level 99 mg/dL (70-99) 101 mg/dL (70-99) Calcium Level 8.8 mg/dL (8.5-10.1) 8.6 mg/dL (8.5-10.1) Magnesium Level 2.2 mg/dL (1.8-2.4) Total Bilirubin 0.5 mg/dL (0.2-1.0) 0.5 mg/dL (0.2-1.0) Direct Bilirubin 0.1 mg/dL (0.0-0.2) Aspartate Amino Transf (AST/SGOT) 23 U/L (15-37) 19 U/L (15-37) Alanine Aminotransferase (ALT/SGPT) 47 U/L (16-63) 35 U/L (16-63) Alkaline Phosphatase 45 U/L (46-116) 37 U/L (46-116) Troponin I Quantitative < 0.017 ng/mL (0.000-0.055) [id number]-Type Natriuretic Peptide 120 pg/mL (0-124) Total Protein 7.0 g/dL (6.4-8.2) 6.1 g/dL (6.4-8.2) Albumin 3.7 g/dL (3.4-5.0) 3.1 g/dL (3.4-5.0) Lipase 169 U/L (73-393) Thyroid Stimulating Hormone (TSH) 1.866 uIU/mL (0.358-3.74) Urine Collection Type Unknown Urine Color Yellow Urine Clarity Clear Urine pH 7.0 Urine Specific [place] 1.010 Urine Protein Negative mg/dL (NEG-TRACE) Urine Glucose (UA) Negative mg/dL (NEG) Urine Ketones (Stick) Negative mg/dL (NEG) Urine Blood Negative (NEG) Urine Nitrite Negative (NEG) Urine Bilirubin Negative (NEG) Urine Urobilinogen Dipstick 1.0 mg/dL (0.2 mg/dL) Urine Leukocyte Esterase Trace (NEG) Urine RBC 0 /HPF (0-2) Urine WBC 0 /HPF (0-4) Urine Squamous Epithelial Cells Few /LPF Urine Bacteria 0 /HPF (0-FEW) Urine Mucus Slight /LPF Heparin Anti-Xa Act, Unfractionated 0.75 IU/mL (0.30-0.70) 0.67 IU/mL (0.30-0.70) BUN/Creatinine Ratio 13 (6-20) Albumin/Globulin Ratio 1.0 (1.0-1.7) ASSESSMENT/PLAN ASSESSMENT/PLAN 1. Rectal bleed: Hgb stable. recent colonoscopy with ulcers/colitis? GI w/u ongoing 2. Paroxysmal Atrial flutter with RVR: Presently SR. 3. 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 Abdominal bruising: recent lovenox? defer to PCP 5. Mild nonobstructive CAD: per [facility] 10/13/2014. Sees cardiology. 6. HTN Recommendations 1. Obtain recent TTE and notes from [facility] cardiology 10/2016 2. High thrombotic risk. Continue with heparin while GI w/u ongoing, resume coumadin when ok with GI. 3. Continue with home metoprolol. 4. Currently stable, supportive care. Problems: AVNI LONG MD 11/14/16 1724: CARDIAC CONSULT ALLERGIES ALLERGIES: Coded Allergies: No Known Drug Allergies (Unverified , 11/14/16) ASSESSMENT/PLAN ASSESSMENT/PLAN Patient seen and examined. Agree with above nurse practitioner note. 66-year-old male presenting with possible GI bleeding. Has a prior history of mechanical mitral valve sounds crisp on examination today. Agree with heparinization and evaluation by GI. If no acute pathology found may restart Coumadin when okay with GI. Would likely continue heparin as opposed to transitioning to Lovenox to avoid excessive anticoagulation. We'll follow along closely. Await review of outside hospital records. Problems: FREDERICK MCKEON APRN Nov 14, 2016 10:14 AVNI LONG MD Nov 14, 2016 17:24
[2016-11-14] MEDS ORDERED: METO25TA4 PO (10:29)
[2016-11-14] MEDS: METOPROLOL TART IMMED RELEASE 25 MG TABLET. PO SCH ×2 (11:40→20:42)
[2016-11-14] MEDS: MORPHINE SULFATE 4 MG/ML DISP.SYRIN. IV PRN ×2 (15:50→16:48)
--- NOTE | 2016-11-14 16:22 | PDOC ---
PROGRESS NOTES Chief Complaint Chief Complaint Melena ASSESSMENT AND PLAN: 1. Melena: appreciate GI service's help with management; EGD today. has recent scope by Dr. Ramírez: ? history of ulcerative or ischemic colitis 2. Anemia: minimal, Hgb stable in 12-13 range 3. OAC: on coumadin for mechanical mitral valve. hold, INR 1.6. currently on IV heparin (risk of thromboembolic event deemed greater than bleeding sequelae) 4. [facility] MVR: no acute issues. echo in 07/2015 with EF 55%, no significant regurg 5. HTN: well controlled on current meds. monitor 6. HLD: on statin Vitals Vitals Vital Signs Date Time Temp Pulse Resp B/P (MAP) Pulse Ox O2 Delivery O2 Flow Rate FiO2 11/14/16 15:50 16 Room Air 11/14/16 14:37 98.8 53 130/71 (90) 99 98.8 Physical Exam General: Alert, Oriented X3, Cooperative, No acute distress Heart: Regular rate (SR), Other (3/6 systolic murmur to TEJAL border; ejection click ) Abdomen: Soft, No tenderness Extremities: No cyanosis, No edema Skin: No breakdown, No significant lesion Labs LABS Laboratory Tests Test 11/13/16 16:30 11/13/16 21:00 11/14/16 05:00 11/14/16 12:39 Urine Collection Type Unknown Urine Color Yellow Urine Clarity Clear Urine pH 7.0 Urine Specific [place] 1.010 Urine Protein Negative mg/dL (NEG-TRACE) Urine Glucose (UA) Negative mg/dL (NEG) Urine Ketones (Stick) Negative mg/dL (NEG) Urine Blood Negative (NEG) Urine Nitrite Negative (NEG) Urine Bilirubin Negative (NEG) Urine Urobilinogen Dipstick 1.0 mg/dL (0.2 mg/dL) Urine Leukocyte Esterase Trace (NEG) Urine RBC 0 /HPF (0-2) Urine WBC 0 /HPF (0-4) Urine Squamous Epithelial Cells Few /LPF Urine Bacteria 0 /HPF (0-FEW) Urine Mucus Slight /LPF White Blood Count 5.1 x10^3/uL (4.0-11.0) 4.1 x10^3/uL (4.0-11.0) Red Blood Count 4.31 x10^6/uL (4.30-5.70) 4.06 x10^6/uL (4.30-5.70) Hemoglobin 13.0 g/dL (13.0-17.5) 12.2 g/dL (13.0-17.5) Hematocrit 39.8 % (39.0-53.0) 37.7 % (39.0-53.0) Mean Corpuscular Volume 92 fL (79-100) 93 fL (79-100) Mean Corpuscular Hemoglobin 30 pg (25-35) 30 pg (25-35) Mean Corpuscular Hemoglobin Concent 33 g/dL (31-37) 32 g/dL (31-37) Red Cell Distribution Width 13.5 % (11.5-14.5) 13.4 % (11.5-14.5) Platelet Count 147 x10^3/uL (140-400) 141 x10^3/uL (140-400) Heparin Anti-Xa Act, Unfractionated 0.75 IU/mL (0.30-0.70) 0.67 IU/mL (0.30-0.70) 0.56 IU/mL (0.30-0.70) Neutrophils (%) (Auto) 49 % (31-73) Lymphocytes (%) (Auto) 36 % (24-48) Monocytes (%) (Auto) 13 % (0-9) Eosinophils (%) (Auto) 2 % (0-3) Basophils (%) (Auto) 1 % (0-3) Neutrophils # (Auto) 2.0 x10^3uL (1.8-7.7) Lymphocytes # (Auto) 1.5 x10^3/uL (1.0-4.8) Monocytes # (Auto) 0.5 x10^3/uL (0.0-1.1) Eosinophils # (Auto) 0.1 x10^3/uL (0.0-0.7) Basophils # (Auto) 0.0 x10^3/uL (0.0-0.2) Prothrombin Time 17.7 SEC (11.7-14.0) Prothromb Time International Ratio 1.6 (0.8-1.1) Sodium Level 143 mmol/L (136-145) Potassium Level 4.3 mmol/L (3.5-5.1) Chloride Level 109 mmol/L (98-107) Carbon Dioxide Level 28 mmol/L (21-32) Anion Gap 6 (6-14) Blood Urea Nitrogen 13 mg/dL (8-26) Creatinine 1.0 mg/dL (0.7-1.3) Estimated GFR (Cockcroft-Gault) 90.7 BUN/Creatinine Ratio 13 (6-20) Glucose Level 101 mg/dL (70-99) Calcium Level 8.6 mg/dL (8.5-10.1) Total Bilirubin 0.5 mg/dL (0.2-1.0) Aspartate Amino Transf (AST/SGOT) 19 U/L (15-37) Alanine Aminotransferase (ALT/SGPT) 35 U/L (16-63) Alkaline Phosphatase 37 U/L (46-116) Total Protein 6.1 g/dL (6.4-8.2) Albumin 3.1 g/dL (3.4-5.0) Albumin/Globulin Ratio 1.0 (1.0-1.7) FRANCOIS BROWN MD Nov 14, 2016 16:22
[2016-11-14] MEDS: IV RINGERS,LACTATED 1000ML 1,000 ML IV SCH (17:30)
[2016-11-14] MEDS ORDERED: PROPOFOL 20 ML IV ONE (17:38)
--- NOTE | 2016-11-14 17:58 | PDOC4 ---
Operative Note Operative Note EGD Meds propofol per anesthesia Pre-op dx melena post-op dx non-erosive gastritis Plan advance diet release in am if Hg stable GELA NIÑO MD Nov 14, 2016 17:58
[2016-11-14] MEDS: ANTI-COAG MONITOR BY PHARMACY. MC PRN (18:33)
[2016-11-15] VITALS (7 sets, daily range): BP systolic 110–139; BP diastolic 49–68
[2016-11-15] MEDS: HEPARIN 25,000UTS/500ML PREMIX 500 ML IV PRN (00:13)
[2016-11-15] MEDS: HYDROcodone/APAP 7.5/325MG 1 TAB TABLET PO PRN ×5 (04:59→21:35)
[2016-11-15] MEDS: BACLOFEN 10 MG TABLET. PO SCH ×4 (07:50→21:16)
[2016-11-15] MEDS: PANTOPRAZOLE 40 MG TABLET.DR. PO SCH (07:50)
[2016-11-15] MEDS: POLYETHYLENE GLYCOL 3350 17 GM PACKET. PO SCH (07:51)
[2016-11-15] MEDS: METOPROLOL TART IMMED RELEASE 25 MG TABLET. PO SCH ×3 (07:55→23:10)
[2016-11-15] MEDS: IV RINGERS,LACTATED 1000ML 1,000 ML IV SCH (08:09)
--- NOTE | 2016-11-15 09:59 | PDOC ---
PROGRESS NOTES Chief Complaint Chief Complaint Melena ASSESSMENT AND PLAN: 1. Melena: EGD on 11/14 with nonerosive gastritis. on PPI. has recent scope by Dr. Ramírez: ? history of ulcerative or ischemic colitis 2. Anemia: minimal, Hgb stable in 12-13 range 3. OAC: on coumadin for mechanical mitral valve at home; currently on IV heparin; transition back to coumadin 4. [facility] MVR: no acute issues. echo in 07/2015 with EF 55%, no significant regurg 5. HTN: well controlled on current meds. monitor 6. HLD: on statin History of Present Illness History of Present Illness no c/o, tolerating PO w/o nausea Vitals Vitals Vital Signs Date Time Temp Pulse Resp B/P (MAP) Pulse Ox O2 Delivery O2 Flow Rate FiO2 11/15/16 09:21 14 Room Air 11/15/16 09:18 62 110/68 11/15/16 09:15 98.2 98 98.2 11/14/16 18:14 2 Physical Exam General: Alert, Oriented X3, Cooperative, No acute distress Heart: Regular rate (SR), Other (3/6 systolic murmur to TEJAL border; mechan click ) Lungs: Clear Abdomen: Normal bowel sounds, Soft, No tenderness Extremities: No cyanosis, No edema Skin: No breakdown, No significant lesion Labs LABS Laboratory Tests Test 11/14/16 12:39 11/14/16 20:45 11/15/16 04:50 Heparin Anti-Xa Act, Unfractionated 0.56 IU/mL (0.30-0.70) 0.43 IU/mL (0.30-0.70) 0.29 IU/mL (0.30-0.70) FRANCOIS BROWN MD Nov 15, 2016 09:59
[2016-11-15 10:14] LABS: CALCIUM 7.9 mg/dL (8.5-10.1); GFR 90.7; POTASSIUM 4.1 mmol/L (3.5-5.1)
[2016-11-15 10:18] LABS: BASO % 0 % (0-3); EOS % 2 % (0-3); HEMATOCRIT 34.8 % (39.0-53.0); HEMOGLOBIN 11.7 g/dL (13.0-17.5); LYMPH # 1.8 x10^3/uL (1.0-4.8); LYMPH % 49 % (24-48); MEAN CORPUSCULAR HEMOGLOBIN 31 pg (25-35); MEAN CORPUSCULAR HGB CONC 34 g/dL (31-37); MEAN CORPUSCULAR VOLUME 91 fL (79-100); MONO % 13 % (0-9); NEUT % 36 % (31-73); PLATELET COUNT 134 x10^3/uL (140-400); RED BLOOD COUNT 3.82 x10^6/uL (4.30-5.70); RED CELL DISTRIBUTION WIDTH 13.5 % (11.5-14.5); WHITE BLOOD COUNT 3.7 x10^3/uL (4.0-11.0)
[2016-11-15 10:20] LABS: INR 1.3 (0.8-1.1); PROTHROMBIN TIME PATIENT 15.4 SEC (11.7-14.0)
--- NOTE | 2016-11-15 10:35 | PDOC ---
Subjective: Subjective: Dark stool yesterday prior to EGD, less dark than previous stools, looking more normal. Tolerating PO. Objective: Objective: Reviewed other notes. D/w RN - still on Heparin, restarting Coumadin. Vital Signs: Vital Signs Date Time Temp Pulse Resp B/P (MAP) Pulse Ox O2 Delivery O2 Flow Rate FiO2 11/15/16 10:26 16 Room Air 11/15/16 09:18 62 110/68 11/15/16 09:15 98.2 98 98.2 11/14/16 18:14 2 Labs: Laboratory Tests Test 11/14/16 12:39 11/14/16 20:45 11/15/16 04:50 Heparin Anti-Xa Act, Unfractionated 0.56 IU/mL 0.43 IU/mL 0.29 IU/mL White Blood Count 3.7 x10^3/uL Red Blood Count 3.82 x10^6/uL Hemoglobin 11.7 g/dL Hematocrit 34.8 % Mean Corpuscular Volume 91 fL Mean Corpuscular Hemoglobin 31 pg Mean Corpuscular Hemoglobin Concent 34 g/dL Red Cell Distribution Width 13.5 % Platelet Count 134 x10^3/uL Neutrophils (%) (Auto) 36 % Lymphocytes (%) (Auto) 49 % Monocytes (%) (Auto) 13 % Eosinophils (%) (Auto) 2 % Basophils (%) (Auto) 0 % Neutrophils # (Auto) 1.3 x10^3uL Lymphocytes # (Auto) 1.8 x10^3/uL Monocytes # (Auto) 0.5 x10^3/uL Eosinophils # (Auto) 0.1 x10^3/uL Basophils # (Auto) 0.0 x10^3/uL Prothrombin Time 15.4 SEC Prothromb Time International Ratio 1.3 Sodium Level 142 mmol/L Potassium Level 4.1 mmol/L Chloride Level 109 mmol/L Carbon Dioxide Level 28 mmol/L Anion Gap 5 Blood Urea Nitrogen 12 mg/dL Creatinine 1.0 mg/dL Estimated GFR (Cockcroft-Gault) 90.7 Glucose Level 89 mg/dL Calcium Level 7.9 mg/dL Imaging: EGD 11/14/16: non-erosive gastritis PE: GEN: NAD LUNGS: CTAB HEART: RRR +murm ABD: NABS, S/ND/NT NEURO/PSYCH: A & O 3 A/P: Dark stools - resolving -EGD yesterday as above -Hgb from 13.2 to 12.2 to 11.7 -colonoscopy w/ Dr. Ramírez last week ?stercoral ulcer ---> requested records, not received [facility] -- Note plans to restart Coumadin - observe. ZENA GU Nov 15, 2016 10:35
[2016-11-15] MEDS: ANTI-COAG MONITOR BY PHARMACY. MC PRN (11:14)
--- NOTE | 2016-11-15 13:31 | PDOC ---
CARDIO Progress Notes Date and Time Date of Service 11/15/16 Time of Evaluation 1315 Subjective Subjective: No Chest Pain, No shortness of breath Vitals Vitals Vital Signs Date Time Temp Pulse Resp B/P (MAP) Pulse Ox O2 Delivery O2 Flow Rate FiO2 11/15/16 13:18 16 98 Room Air 11/15/16 11:00 98.9 63 110/62 (78) 98.9 11/14/16 18:14 2 Weight Weight [ ] Input and Output Intake and Output Intake and Output 11/15/16 07:00 Intake Total 2230 ml Output Total 2375 ml Balance -145 ml Intake Oral 480 ml IV Total 1750 ml Output Urine Total 2375 ml # Voids 1 Laboratory Labs Laboratory Tests Test 11/14/16 20:45 11/15/16 04:50 11/15/16 12:20 Heparin Anti-Xa Act, Unfractionated 0.43 IU/mL (0.30-0.70) 0.29 IU/mL (0.30-0.70) 0.28 IU/mL (0.30-0.70) White Blood Count 3.7 x10^3/uL (4.0-11.0) Red Blood Count 3.82 x10^6/uL (4.30-5.70) Hemoglobin 11.7 g/dL (13.0-17.5) Hematocrit 34.8 % (39.0-53.0) Mean Corpuscular Volume 91 fL (79-100) Mean Corpuscular Hemoglobin 31 pg (25-35) Mean Corpuscular Hemoglobin Concent 34 g/dL (31-37) Red Cell Distribution Width 13.5 % (11.5-14.5) Platelet Count 134 x10^3/uL (140-400) Neutrophils (%) (Auto) 36 % (31-73) Lymphocytes (%) (Auto) 49 % (24-48) Monocytes (%) (Auto) 13 % (0-9) Eosinophils (%) (Auto) 2 % (0-3) Basophils (%) (Auto) 0 % (0-3) Neutrophils # (Auto) 1.3 x10^3uL (1.8-7.7) Lymphocytes # (Auto) 1.8 x10^3/uL (1.0-4.8) Monocytes # (Auto) 0.5 x10^3/uL (0.0-1.1) Eosinophils # (Auto) 0.1 x10^3/uL (0.0-0.7) Basophils # (Auto) 0.0 x10^3/uL (0.0-0.2) Prothrombin Time 15.4 SEC (11.7-14.0) Prothromb Time International Ratio 1.3 (0.8-1.1) Sodium Level 142 mmol/L (136-145) Potassium Level 4.1 mmol/L (3.5-5.1) Chloride Level 109 mmol/L (98-107) Carbon Dioxide Level 28 mmol/L (21-32) Anion Gap 5 (6-14) Blood Urea Nitrogen 12 mg/dL (8-26) Creatinine 1.0 mg/dL (0.7-1.3) Estimated GFR (Cockcroft-Gault) 90.7 Glucose Level 89 mg/dL (70-99) Calcium Level 7.9 mg/dL (8.5-10.1) Microbiology Micro Microbiology 11/13/16 Urine Culture - Preliminary, Resulted 11/13/16 Urine Culture Result 1 (JOSE A) - Preliminary, Resulted Physical Exam HEENT: Neck Supple W Full Motion Chest: Symmetric LUNGS: Clear to Auscultation Heart: S1S2, RRR, murmurs (audible mechanical valvular click), other (tele; SR- SB) Abdomen: Soft N/T Extremities: No Edema, No Calf Tenderness Neurology: alert, oriented, follow commands Assessment Assessment 1. Melena: EGD with non-erosive gastritis. 2. Paroxysmal Atrial flutter with RVR; maintaining SR 3. S/p mechanical mitral valve; Rheumatic fever as a child 4. Mild, non-obstructive CAD 5. HTN Recommendations 1. Obtain echo report from last month. 2. Warfarin resumed; continue heparin until INR therapeutic 3. [facility] records reviewed - Cath 10/2014 revealed mild, non-obstructive CAD. - Onset of atrial flutter 07/2015 s/p DCCV 09/14/15 - S/p mitral valve replacement with a 31mm St. 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 JANIE URBAN APRN Nov 15, 2016 13:31
[2016-11-15] MEDS: WARFARIN 10 MG TABLET. PO SCH ×2 (14:23→16:39)
[2016-11-16] MEDS: HYDROcodone/APAP 7.5/325MG 1 TAB TABLET PO PRN ×5 (01:27→21:24)
[2016-11-16] MEDS: HEPARIN 25,000UTS/500ML PREMIX 500 ML IV PRN (01:30)
[2016-11-16 03:28] VITALS: BP 128/68
[2016-11-16 07:00] VITALS: BP 140/53
[2016-11-16] MEDS ORDERED: PHENOL ORAL SPRAY 177ML BOTTLE. PO PRN (08:00)
[2016-11-16] MEDS: METOPROLOL TART IMMED RELEASE 25 MG TABLET. PO SCH ×2 (08:49→21:23)
[2016-11-16] MEDS: POLYETHYLENE GLYCOL 3350 17 GM PACKET. PO SCH (08:49)
[2016-11-16] MEDS: PANTOPRAZOLE 40 MG TABLET.DR. PO SCH (08:49)
[2016-11-16] MEDS: BACLOFEN 10 MG TABLET. PO SCH ×4 (08:49→21:23)
[2016-11-16 08:53] LABS: BASO % 0 % (0-3); EOS % 3 % (0-3); HEMATOCRIT 36.4 % (39.0-53.0); HEMOGLOBIN 11.9 g/dL (13.0-17.5); LYMPH # 1.9 x10^3/uL (1.0-4.8); LYMPH % 42 % (24-48); MEAN CORPUSCULAR HEMOGLOBIN 31 pg (25-35); MEAN CORPUSCULAR HGB CONC 33 g/dL (31-37); MEAN CORPUSCULAR VOLUME 93 fL (79-100); MONO % 12 % (0-9); NEUT % 43 % (31-73); PLATELET COUNT 139 x10^3/uL (140-400); RED CELL DISTRIBUTION WIDTH 13.5 % (11.5-14.5); WHITE BLOOD COUNT 4.6 x10^3/uL (4.0-11.0)
[2016-11-16 08:55] LABS: INR 1.2 (0.8-1.1); PROTHROMBIN TIME PATIENT 14.3 SEC (11.7-14.0)
[2016-11-16 11:00] VITALS: BP 122/66
--- NOTE | 2016-11-16 11:59 | PDOC ---
PROGRESS NOTES Chief Complaint Chief Complaint Melena ASSESSMENT AND PLAN: 1. Melena: EGD on 11/14 with nonerosive gastritis. on PPI. has recent scope by Dr. Ramírez: ? history of ulcerative or ischemic colitis 2. Anemia with chronic dz and melena 3. OAC: on coumadin for mechanical mitral valve at home; currently on IV heparin; transition back to coumadin 4. [facility] MVR: echo in 07/2015 with EF 55%, no significant regurg 5. HTN: well controlled on current meds. monitor 6. HLD: on statin PAFIB plan: fu with gi , card on heparin drip bridging, cont warfarin, INR needs to be 2.5 to 3.5 monitor cbc, hb stable for now altho cont having bloody stool cannot dc till INR 2.5. discussed with pt, he is disappointed to stay longer History of Present Illness History of Present Illness no c/o, tolerating PO w/o nausea cont having bloody stool as per pt, Hb stable INR low at 1.2 , on heparin drip for bridging Vitals Vitals Vital Signs Date Time Temp Pulse Resp B/P (MAP) Pulse Ox O2 Delivery O2 Flow Rate FiO2 11/16/16 08:49 48 140/53 11/16/16 07:00 98.9 18 96 Room Air 98.9 Physical Exam General: Alert, Oriented X3, Cooperative, No acute distress Heart: Regular rate (SR), Other (3/6 systolic murmur to TEJAL border; mechan click ) Lungs: Clear Abdomen: Normal bowel sounds, Soft, No tenderness Extremities: No cyanosis, No edema Skin: No breakdown, No significant lesion Labs LABS Laboratory Tests Test 11/15/16 12:20 11/15/16 18:35 11/16/16 01:05 11/16/16 06:50 Heparin Anti-Xa Act, Unfractionated 0.28 IU/mL (0.30-0.70) 0.55 IU/mL (0.30-0.70) 0.88 IU/mL (0.30-0.70) 0.84 IU/mL (0.30-0.70) White Blood Count 4.6 x10^3/uL (4.0-11.0) Red Blood Count 3.90 x10^6/uL (4.30-5.70) Hemoglobin 11.9 g/dL (13.0-17.5) Hematocrit 36.4 % (39.0-53.0) Mean Corpuscular Volume 93 fL (79-100) Mean Corpuscular Hemoglobin 31 pg (25-35) Mean Corpuscular Hemoglobin Concent 33 g/dL (31-37) Red Cell Distribution Width 13.5 % (11.5-14.5) Platelet Count 139 x10^3/uL (140-400) Neutrophils (%) (Auto) 43 % (31-73) Lymphocytes (%) (Auto) 42 % (24-48) Monocytes (%) (Auto) 12 % (0-9) Eosinophils (%) (Auto) 3 % (0-3) Basophils (%) (Auto) 0 % (0-3) Neutrophils # (Auto) 1.9 x10^3uL (1.8-7.7) Lymphocytes # (Auto) 1.9 x10^3/uL (1.0-4.8) Monocytes # (Auto) 0.6 x10^3/uL (0.0-1.1) Eosinophils # (Auto) 0.1 x10^3/uL (0.0-0.7) Basophils # (Auto) 0.0 x10^3/uL (0.0-0.2) Prothrombin Time 14.3 SEC (11.7-14.0) Prothromb Time International Ratio 1.2 (0.8-1.1) Review of Systems Review of Systems no fever, chills, chest pain or sob Assessment and Plan Assessmemt and Plan Problems Medical Problems: (1) GI bleed Status: Acute Problems: Comment Review of Relevant I have reviewed the following items shabana (where applicable) has been applied. Labs Laboratory Tests Test 11/14/16 12:39 11/14/16 20:45 11/15/16 04:50 11/15/16 12:20 Heparin Anti-Xa Act, Unfractionated 0.56 IU/mL (0.30-0.70) 0.43 IU/mL (0.30-0.70) 0.29 IU/mL (0.30-0.70) 0.28 IU/mL (0.30-0.70) White Blood Count 3.7 x10^3/uL (4.0-11.0) Red Blood Count 3.82 x10^6/uL (4.30-5.70) Hemoglobin 11.7 g/dL (13.0-17.5) Hematocrit 34.8 % (39.0-53.0) Mean Corpuscular Volume 91 fL (79-100) Mean Corpuscular Hemoglobin 31 pg (25-35) Mean Corpuscular Hemoglobin Concent 34 g/dL (31-37) Red Cell Distribution Width 13.5 % (11.5-14.5) Platelet Count 134 x10^3/uL (140-400) Neutrophils (%) (Auto) 36 % (31-73) Lymphocytes (%) (Auto) 49 % (24-48) Monocytes (%) (Auto) 13 % (0-9) Eosinophils (%) (Auto) 2 % (0-3) Basophils (%) (Auto) 0 % (0-3) Neutrophils # (Auto) 1.3 x10^3uL (1.8-7.7) Lymphocytes # (Auto) 1.8 x10^3/uL (1.0-4.8) Monocytes # (Auto) 0.5 x10^3/uL (0.0-1.1) Eosinophils # (Auto) 0.1 x10^3/uL (0.0-0.7) Basophils # (Auto) 0.0 x10^3/uL (0.0-0.2) Prothrombin Time 15.4 SEC (11.7-14.0) Prothromb Time International Ratio 1.3 (0.8-1.1) Sodium Level 142 mmol/L (136-145) Potassium Level 4.1 mmol/L (3.5-5.1) Chloride Level 109 mmol/L (98-107) Carbon Dioxide Level 28 mmol/L (21-32) Anion Gap 5 (6-14) Blood Urea Nitrogen 12 mg/dL (8-26) Creatinine 1.0 mg/dL (0.7-1.3) Estimated GFR (Cockcroft-Gault) 90.7 Glucose Level 89 mg/dL (70-99) Calcium Level 7.9 mg/dL (8.5-10.1) Test 11/15/16 18:35 11/16/16 01:05 11/16/16 06:50 Heparin Anti-Xa Act, Unfractionated 0.55 IU/mL (0.30-0.70) 0.88 IU/mL (0.30-0.70) 0.84 IU/mL (0.30-0.70) White Blood Count 4.6 x10^3/uL (4.0-11.0) Red Blood Count 3.90 x10^6/uL (4.30-5.70) Hemoglobin 11.9 g/dL (13.0-17.5) Hematocrit 36.4 % (39.0-53.0) Mean Corpuscular Volume 93 fL (79-100) Mean Corpuscular Hemoglobin 31 pg (25-35) Mean Corpuscular Hemoglobin Concent 33 g/dL (31-37) Red Cell Distribution Width 13.5 % (11.5-14.5) Platelet Count 139 x10^3/uL (140-400) Neutrophils (%) (Auto) 43 % (31-73) Lymphocytes (%) (Auto) 42 % (24-48) Monocytes (%) (Auto) 12 % (0-9) Eosinophils (%) (Auto) 3 % (0-3) Basophils (%) (Auto) 0 % (0-3) Neutrophils # (Auto) 1.9 x10^3uL (1.8-7.7) Lymphocytes # (Auto) 1.9 x10^3/uL (1.0-4.8) Monocytes # (Auto) 0.6 x10^3/uL (0.0-1.1) Eosinophils # (Auto) 0.1 x10^3/uL (0.0-0.7) Basophils # (Auto) 0.0 x10^3/uL (0.0-0.2) Prothrombin Time 14.3 SEC (11.7-14.0) Prothromb Time International Ratio 1.2 (0.8-1.1) Laboratory Tests Test 11/15/16 12:20 11/15/16 18:35 11/16/16 01:05 11/16/16 06:50 Heparin Anti-Xa Act, Unfractionated 0.28 IU/mL (0.30-0.70) 0.55 IU/mL (0.30-0.70) 0.88 IU/mL (0.30-0.70) 0.84 IU/mL (0.30-0.70) White Blood Count 4.6 x10^3/uL (4.0-11.0) Red Blood Count 3.90 x10^6/uL (4.30-5.70) Hemoglobin 11.9 g/dL (13.0-17.5) Hematocrit 36.4 % (39.0-53.0) Mean Corpuscular Volume 93 fL (79-100) Mean Corpuscular Hemoglobin 31 pg (25-35) Mean Corpuscular Hemoglobin Concent 33 g/dL (31-37) Red Cell Distribution Width 13.5 % (11.5-14.5) Platelet Count 139 x10^3/uL (140-400) Neutrophils (%) (Auto) 43 % (31-73) Lymphocytes (%) (Auto) 42 % (24-48) Monocytes (%) (Auto) 12 % (0-9) Eosinophils (%) (Auto) 3 % (0-3) Basophils (%) (Auto) 0 % (0-3) Neutrophils # (Auto) 1.9 x10^3uL (1.8-7.7) Lymphocytes # (Auto) 1.9 x10^3/uL (1.0-4.8) Monocytes # (Auto) 0.6 x10^3/uL (0.0-1.1) Eosinophils # (Auto) 0.1 x10^3/uL (0.0-0.7) Basophils # (Auto) 0.0 x10^3/uL (0.0-0.2) Prothrombin Time 14.3 SEC (11.7-14.0) Prothromb Time International Ratio 1.2 (0.8-1.1) Microbiology 11/13/16 Urine Culture - Final, Complete 11/13/16 Urine Culture Result 1 (JOSE A) - Final, Complete Medications Current Medications Sodium Chloride (Normal Saline Flush) 10 ml QSHIFT PRN IV AFTER MEDS AND BLOOD DRAWS Last administered on 11/13/16 18:05; Start 11/13/16 at 16:00 Sodium Chloride 1,000 ml @ 1,000 mls/hr Q1H IV Last administered on 11/13/16 16:18; Start 11/13/16 at 15:49; Stop 11/13/16 at 16:48; Status DC Sodium Chloride (Normal Saline Flush) 10 ml QSHIFT PRN IV AFTER MEDS AND BLOOD DRAWS Last administered on 11/13/16 16:17; Start 11/13/16 at 16:00; Stop 11/14/16 at 10:35; Status DC Pantoprazole Sodium (Protonix) 40 mg 1X ONCE PO ; Start 11/13/16 at 17:15; Stop 11/13/16 at 17:32; Status DC Famotidine (Pepcid) 20 mg 1X ONCE IVP Last administered on 11/13/16 18:05; Start 11/13/16 at 17:30; Stop 11/13/16 at 17:35; Status DC Ondansetron HCl (Zofran) 4 mg PRN Q8HRS PRN IV NAUSEA/VOMITING; Start 11/13/16 at 18:30; Stop 11/14/16 at 18:29; Status DC Sodium Chloride 1,000 ml @ 125 mls/hr Q8H IV Last administered on 11/14/16 11: 37; Start 11/13/16 at 18:20; Stop 11/14/16 at 18:19; Status DC Pantoprazole Sodium (Protonix) 40 mg DAILYAC PO Last administered on 11/16/16 08:49; Start 11/14/16 at 07:30 Heparin Sodium/ Dextrose 500 ml @ 0 mls/hr CONT PRN IV SEE I/O RECORD Last administered on 11/16/16 01:30; Start 11/13/16 at 20:15 Heparin Sodium (Porcine) (Heparin Sodium) 2,250 unit PRN Q6HRS PRN IV FOR UFH LEVEL LESS THAN 0.2; Start 11/13/16 at 20:15 Baclofen (Lioresal) 10 mg QID PO Last administered on 11/16/16 08:49; Start 11/13/16 at 22:00 Docusate Sodium (Colace) 100 mg PRN BID PRN PO CONSTIPATION Last administered on 11/16/16 08:49; Start 11/13/16 at 21:45 Acetaminophen/ Hydrocodone Bitart (Lortab 7.5/325) 2 tab PRN Q4HRS PRN PO SEVERE PAIN Last administered on 11/16/16 06:32; Start 11/13/16 at 21:45 Polyethylene Glycol (miraLAX PACKET) 17 gm DAILY PO Last administered on 08:49; Start 11/14/16 at 09:00 Senna/Docusate Sodium (Senna Plus) 1 tab PRN BID PRN PO CONSTIPATION; Start 11/13/16 at 21:45 Metoprolol Tartrate (Lopressor) 25 mg BID PO Last administered on 11/15/16 23: 10; Start 11/14/16 at 11:00 Morphine Sulfate 2 mg PRN Q4HRS PRN IV PAIN Last administered on 11/14/16 15:50 ; Start 11/14/16 at 15:30; Stop 11/15/16 at 09:58; Status DC Info (Anti-Coagulation Monitoring By Pharmacy) 1 each PRN DAILY PRN MC SEE COMMENTS Last administered on 11/15/16 11:14; Start 11/14/16 at 17:15 Propofol 20 ml @ As Directed STK-MED ONCE IV ; Start 11/14/16 at 17:38; Stop 11/14 at 17:39; Status DC Ringer's Solution 1,000 ml @ 75 mls/hr [id number] IV Last administered on 08:09; Start 11/14/16 at 19:00; Stop 11/15/16 at 09:58; Status DC Warfarin Sodium (Coumadin) 10 mg DAILY16 PO Last administered on 11/15/16 16:39 ; Start 11/15/16 at 16:00 Warfarin Sodium (Coumadin Per Physician) 1 each PRN DAILY PRN MC SEE COMMENTS Last administered on 11/16/16 10:44; Start 11/15/16 at 10:15 Throat Lozenges (Chloraseptic) 1 spray PRN Q2HR PRN PO SORE THROAT Last administered on 11/16/16 08:49; Start 11/16/16 at 08:00 Active Scripts Active Colace (Docusate Sodium) 100 Mg Capsule 100 Mg PO PRN BID PRN Reported Metoprolol Tartrate 25 Mg Tablet 1 Tab PO BID Miralax (Polyethylene Glycol 3350) 17 Gm Powd.pack 1 Packet PO DAILY Baclofen 10 Mg Tablet 10 Mg PO QID Hydrocodone-Apap 7.5-325 (Hydrocodone Bit/Acetaminophen) 1 Each Tablet 1-2 Tab PO Q4-6HRS Vitals/I & O Vital Sign - Last 24 Hours 11/15/16 11/15/16 11/15/16 11/15/16 13:18 15:00 17:30 18:30 Temp 89.0 89.0 Pulse 69 Resp 16 16 16 B/P (MAP) 114/66 (82) Pulse Ox 98 98 98 O2 Delivery Room Air Room Air Room Air 11/15/16 11/15/16 11/15/16 11/15/16 19:30 19:41 21:35 23:03 Temp 97.9 97.5 97.9 97.5 Pulse 50 57 Resp 18 18 B/P (MAP) 112/54 (73) 139/62 (87) Pulse Ox 98 98 98 O2 Delivery Room Air Room Air Room Air Room Air 11/15/16 11/16/16 11/16/16 11/16/16 23:10 01:27 02:30 03:28 Temp 97.5 97.5 Pulse 57 53 Resp 18 B/P (MAP) 139/62 128/68 (88) Pulse Ox 98 98 100 O2 Delivery Room Air Room Air Room Air 11/16/16 11/16/16 11/16/16 06:32 07:00 08:49 Temp 98.9 98.9 Pulse 48 48 Resp 18 B/P (MAP) 140/53 (82) 140/53 Pulse Ox 100 96 O2 Delivery Room Air Room Air Intake and Output 11/15/16 11/15/16 11/16/16 15:00 23:00 07:00 Intake Total 1160 ml 850 ml Output Total 300 ml 750 ml 750 ml Balance 860 ml 100 ml -750 ml STACY LOPEZ MD Nov 16, 2016 11:59
[2016-11-16] MEDS ORDERED: DOCUSATE SODIUM 100 MG CAPSULE. PO PRN (12:00)
[2016-11-16] MEDS ORDERED: ONDANSETRON PF 4 MG/2 ML VIAL. IV PRN (12:00)
[2016-11-16] MEDS ORDERED: ACETAMINOPHEN 325 MG TABLET. PO PRN (12:00)
[2016-11-16] MEDS ORDERED: hydrALAZINE 20 MG/ML VIAL. IVP PRN (12:00)
[2016-11-16] MEDS ORDERED: traMADol 50 MG TABLET PO PRN (12:00)
[2016-11-16] MEDS ORDERED: MORPHINE SULFATE 2 MG/ML DISP.SYRIN. IV PRN (12:00)
--- NOTE | 2016-11-16 12:51 | PDOC ---
Subjective: Subjective: Denies black or red blood in stools - tells me this morning looked brown but then says he's "a little color blind." Objective: Objective: Per RN - pt told Dr. Patel he saw red blood in his stool. Probably will stay til Fri until INR therapeutic. Still no colonoscopy records - it looks like cardiology records were requested but not GI records. Vital Signs: Vital Signs Date Time Temp Pulse Resp B/P (MAP) Pulse Ox O2 Delivery O2 Flow Rate FiO2 11/16/16 11:00 98.8 52 18 122/66 (84) 95 Room Air 98.8 Labs: Laboratory Tests Test 11/15/16 18:35 11/16/16 01:05 11/16/16 06:50 Heparin Anti-Xa Act, Unfractionated 0.55 IU/mL 0.88 IU/mL 0.84 IU/mL White Blood Count 4.6 x10^3/uL Red Blood Count 3.90 x10^6/uL Hemoglobin 11.9 g/dL Hematocrit 36.4 % Mean Corpuscular Volume 93 fL Mean Corpuscular Hemoglobin 31 pg Mean Corpuscular Hemoglobin Concent 33 g/dL Red Cell Distribution Width 13.5 % Platelet Count 139 x10^3/uL Neutrophils (%) (Auto) 43 % Lymphocytes (%) (Auto) 42 % Monocytes (%) (Auto) 12 % Eosinophils (%) (Auto) 3 % Basophils (%) (Auto) 0 % Neutrophils # (Auto) 1.9 x10^3uL Lymphocytes # (Auto) 1.9 x10^3/uL Monocytes # (Auto) 0.6 x10^3/uL Eosinophils # (Auto) 0.1 x10^3/uL Basophils # (Auto) 0.0 x10^3/uL Prothrombin Time 14.3 SEC Prothromb Time International Ratio 1.2 PE: GEN: NAD LUNGS: CTAB HEART: RRR +murm ABD: NABS, S/ND/NT NEURO/PSYCH: A & O 3 A/P: Dark stools - resolving -EGD w/ non-erosive gastritis -some drift in Hgb, now stable in 11s -colonoscopy w/ Dr. Ramírez last week ?stercoral ulcer [facility] MVR -restarting Coumadin -- Will again request records of colonoscopy. Asked RN to look at color of next BM. ZENA GU Nov 16, 2016 12:51
[2016-11-16 15:00] VITALS: BP 126/56
[2016-11-16] MEDS: WARFARIN 10 MG TABLET. PO SCH (17:15)
[2016-11-16 19:00] VITALS: BP 139/60
[2016-11-16 23:00] VITALS: BP 125/66
[2016-11-17 02:06] LABS: BASO % 0 % (0-3); EOS % 3 % (0-3); HEMATOCRIT 35.9 % (39.0-53.0); HEMOGLOBIN 11.9 g/dL (13.0-17.5); LYMPH % 40 % (24-48); MEAN CORPUSCULAR HEMOGLOBIN 31 pg (25-35); MEAN CORPUSCULAR HGB CONC 33 g/dL (31-37); MEAN CORPUSCULAR VOLUME 92 fL (79-100); MONO % 12 % (0-9); NEUT % 44 % (31-73); PLATELET COUNT 144 x10^3/uL (140-400); RED BLOOD COUNT 3.89 x10^6/uL (4.30-5.70); RED CELL DISTRIBUTION WIDTH 13.8 % (11.5-14.5); WHITE BLOOD COUNT 5.1 x10^3/uL (4.0-11.0)
[2016-11-17 02:21] LABS: CALCIUM 8.1 mg/dL (8.5-10.1); GFR 90.7; POTASSIUM 3.8 mmol/L (3.5-5.1)
[2016-11-17 02:23] LABS: INR 1.2 (0.8-1.1); PROTHROMBIN TIME PATIENT 14.4 SEC (11.7-14.0)
[2016-11-17 03:00] VITALS: BP 131/60
[2016-11-17] MEDS: PANTOPRAZOLE 40 MG TABLET.DR. PO SCH (06:42)
[2016-11-17 07:00] VITALS: BP 142/55
[2016-11-17] MEDS: POLYETHYLENE GLYCOL 3350 17 GM PACKET. PO SCH (08:29)
[2016-11-17] MEDS: HYDROcodone/APAP 7.5/325MG 1 TAB TABLET PO PRN ×2 (08:29→21:14)
[2016-11-17] MEDS: METOPROLOL TART IMMED RELEASE 25 MG TABLET. PO SCH ×2 (08:31→21:09)
[2016-11-17] MEDS: BACLOFEN 10 MG TABLET. PO SCH ×4 (08:34→21:10)
--- NOTE | 2016-11-17 10:29 | PDOC ---
Subjective: Subjective: No stools since yesterday. Objective: Objective: Reviewed colonoscopy records: deep cecal ulcers and internal hemorrhoids, path c /w ischemic colitis. Vital Signs: Vital Signs Date Time Temp Pulse Resp B/P (MAP) Pulse Ox O2 Delivery O2 Flow Rate FiO2 11/17/16 09:29 16 11/17/16 08:31 18 142/55 11/17/16 08:29 Room Air 11/17/16 07:00 100.0 96 100.0 Labs: Laboratory Tests Test 11/16/16 13:00 11/16/16 20:20 11/17/16 01:45 11/17/16 08:10 Heparin Anti-Xa Act, Unfractionated 0.29 IU/mL 0.36 IU/mL 0.39 IU/mL 0.43 IU/mL White Blood Count 5.1 x10^3/uL Red Blood Count 3.89 x10^6/uL Hemoglobin 11.9 g/dL Hematocrit 35.9 % Mean Corpuscular Volume 92 fL Mean Corpuscular Hemoglobin 31 pg Mean Corpuscular Hemoglobin Concent 33 g/dL Red Cell Distribution Width 13.8 % Platelet Count 144 x10^3/uL Neutrophils (%) (Auto) 44 % Lymphocytes (%) (Auto) 40 % Monocytes (%) (Auto) 12 % Eosinophils (%) (Auto) 3 % Basophils (%) (Auto) 0 % Neutrophils # (Auto) 2.3 x10^3uL Lymphocytes # (Auto) 2.0 x10^3/uL Monocytes # (Auto) 0.6 x10^3/uL Eosinophils # (Auto) 0.2 x10^3/uL Basophils # (Auto) 0.0 x10^3/uL Prothrombin Time 14.4 SEC Prothromb Time International Ratio 1.2 Sodium Level 141 mmol/L Potassium Level 3.8 mmol/L Chloride Level 107 mmol/L Carbon Dioxide Level 29 mmol/L Anion Gap 5 Blood Urea Nitrogen 15 mg/dL Creatinine 1.0 mg/dL Estimated GFR (Cockcroft-Gault) 90.7 Glucose Level 156 mg/dL Calcium Level 8.1 mg/dL PE: GEN: NAD LUNGS: CTAB HEART: RRR +murm ABD: S/ND/NT NEURO/PSYCH: A & O 3 A/P: Dark stools - resolved -EGD w/ non-erosive gastritis, colonoscopy w/ cecal ulcers/path ischemic colitis -Hgb stable Mech MVR -back on Coumadin, awaiting therapeutic INR -- Bleeding seems to have resolved w/ stable Hgb. Will review colonoscopy report w/ Dr. Anderson. D/w Dr. Patel, RN. ZENA GU Nov 17, 2016 10:29
[2016-11-17 11:00] VITALS: BP 129/67
--- NOTE | 2016-11-17 11:30 | PDOC ---
PROGRESS NOTES Chief Complaint Chief Complaint Melena ASSESSMENT AND PLAN: 1. Melena: EGD on 11/14 with nonerosive gastritis. on PPI. has recent scope by Dr. Ramírez with cecal ischemic colitis 2. Anemia with chronic dz and melena 3. OAC: on coumadin for mechanical mitral valve at home; currently on IV heparin; transition back to coumadin 4. [facility] MVR: echo in 07/2015 with EF 55%, no significant regurg 5. HTN 6. HLD PAFIB plan: fu with gi , card on heparin drip bridging, cont warfarin, INR needs to be 2.5 to 3.5 monitor cbc, hb stable for now altho cont having bloody stool talked to gi, and card, will change to lovenox bid ,dc heparin drip, cont warfarin dc tmr with lovenox bid home , pt checks his INR daily at home, can stop lovenox sq once INR is 2.5. pt understands History of Present Illness History of Present Illness no c/o, tolerating PO w/o nausea cont having bloody stool 11/16 as per pt, Hb stable NO bm TODAY INR low at 1.2 , on heparin drip for bridging Vitals Vitals Vital Signs Date Time Temp Pulse Resp B/P (MAP) Pulse Ox O2 Delivery O2 Flow Rate FiO2 11/17/16 09:29 16 11/17/16 08:31 18 142/55 11/17/16 08:29 Room Air 11/17/16 07:00 100.0 96 100.0 Physical Exam General: Alert, Oriented X3, Cooperative, No acute distress Heart: Regular rate (SR), Other (3/6 systolic murmur to TEJAL border; mechan click ) Lungs: Clear Abdomen: Normal bowel sounds, Soft, No tenderness Extremities: No cyanosis, No edema Skin: No breakdown, No significant lesion Labs LABS Laboratory Tests Test 11/16/16 13:00 11/16/16 20:20 11/17/16 01:45 11/17/16 08:10 Heparin Anti-Xa Act, Unfractionated 0.29 IU/mL (0.30-0.70) 0.36 IU/mL (0.30-0.70) 0.39 IU/mL (0.30-0.70) 0.43 IU/mL (0.30-0.70) White Blood Count 5.1 x10^3/uL (4.0-11.0) Red Blood Count 3.89 x10^6/uL (4.30-5.70) Hemoglobin 11.9 g/dL (13.0-17.5) Hematocrit 35.9 % (39.0-53.0) Mean Corpuscular Volume 92 fL (79-100) Mean Corpuscular Hemoglobin 31 pg (25-35) Mean Corpuscular Hemoglobin Concent 33 g/dL (31-37) Red Cell Distribution Width 13.8 % (11.5-14.5) Platelet Count 144 x10^3/uL (140-400) Neutrophils (%) (Auto) 44 % (31-73) Lymphocytes (%) (Auto) 40 % (24-48) Monocytes (%) (Auto) 12 % (0-9) Eosinophils (%) (Auto) 3 % (0-3) Basophils (%) (Auto) 0 % (0-3) Neutrophils # (Auto) 2.3 x10^3uL (1.8-7.7) Lymphocytes # (Auto) 2.0 x10^3/uL (1.0-4.8) Monocytes # (Auto) 0.6 x10^3/uL (0.0-1.1) Eosinophils # (Auto) 0.2 x10^3/uL (0.0-0.7) Basophils # (Auto) 0.0 x10^3/uL (0.0-0.2) Prothrombin Time 14.4 SEC (11.7-14.0) Prothromb Time International Ratio 1.2 (0.8-1.1) Sodium Level 141 mmol/L (136-145) Potassium Level 3.8 mmol/L (3.5-5.1) Chloride Level 107 mmol/L (98-107) Carbon Dioxide Level 29 mmol/L (21-32) Anion Gap 5 (6-14) Blood Urea Nitrogen 15 mg/dL (8-26) Creatinine 1.0 mg/dL (0.7-1.3) Estimated GFR (Cockcroft-Gault) 90.7 Glucose Level 156 mg/dL (70-99) Calcium Level 8.1 mg/dL (8.5-10.1) Review of Systems Review of Systems no fever, chills, sob or chest pain Assessment and Plan Assessmemt and Plan Problems Medical Problems: (1) GI bleed Status: Acute Problems: Comment Review of Relevant I have reviewed the following items shabana (where applicable) has been applied. Labs Laboratory Tests Test 11/15/16 12:20 11/15/16 18:35 11/16/16 01:05 11/16/16 06:50 Heparin Anti-Xa Act, Unfractionated 0.28 IU/mL (0.30-0.70) 0.55 IU/mL (0.30-0.70) 0.88 IU/mL (0.30-0.70) 0.84 IU/mL (0.30-0.70) White Blood Count 4.6 x10^3/uL (4.0-11.0) Red Blood Count 3.90 x10^6/uL (4.30-5.70) Hemoglobin 11.9 g/dL (13.0-17.5) Hematocrit 36.4 % (39.0-53.0) Mean Corpuscular Volume 93 fL (79-100) Mean Corpuscular Hemoglobin 31 pg (25-35) Mean Corpuscular Hemoglobin Concent 33 g/dL (31-37) Red Cell Distribution Width 13.5 % (11.5-14.5) Platelet Count 139 x10^3/uL (140-400) Neutrophils (%) (Auto) 43 % (31-73) Lymphocytes (%) (Auto) 42 % (24-48) Monocytes (%) (Auto) 12 % (0-9) Eosinophils (%) (Auto) 3 % (0-3) Basophils (%) (Auto) 0 % (0-3) Neutrophils # (Auto) 1.9 x10^3uL (1.8-7.7) Lymphocytes # (Auto) 1.9 x10^3/uL (1.0-4.8) Monocytes # (Auto) 0.6 x10^3/uL (0.0-1.1) Eosinophils # (Auto) 0.1 x10^3/uL (0.0-0.7) Basophils # (Auto) 0.0 x10^3/uL (0.0-0.2) Prothrombin Time 14.3 SEC (11.7-14.0) Prothromb Time International Ratio 1.2 (0.8-1.1) Test 11/16/16 13:00 11/16/16 20:20 11/17/16 01:45 11/17/16 08:10 Heparin Anti-Xa Act, Unfractionated 0.29 IU/mL (0.30-0.70) 0.36 IU/mL (0.30-0.70) 0.39 IU/mL (0.30-0.70) 0.43 IU/mL (0.30-0.70) White Blood Count 5.1 x10^3/uL (4.0-11.0) Red Blood Count 3.89 x10^6/uL (4.30-5.70) Hemoglobin 11.9 g/dL (13.0-17.5) Hematocrit 35.9 % (39.0-53.0) Mean Corpuscular Volume 92 fL (79-100) Mean Corpuscular Hemoglobin 31 pg (25-35) Mean Corpuscular Hemoglobin Concent 33 g/dL (31-37) Red Cell Distribution Width 13.8 % (11.5-14.5) Platelet Count 144 x10^3/uL (140-400) Neutrophils (%) (Auto) 44 % (31-73) Lymphocytes (%) (Auto) 40 % (24-48) Monocytes (%) (Auto) 12 % (0-9) Eosinophils (%) (Auto) 3 % (0-3) Basophils (%) (Auto) 0 % (0-3) Neutrophils # (Auto) 2.3 x10^3uL (1.8-7.7) Lymphocytes # (Auto) 2.0 x10^3/uL (1.0-4.8) Monocytes # (Auto) 0.6 x10^3/uL (0.0-1.1) Eosinophils # (Auto) 0.2 x10^3/uL (0.0-0.7) Basophils # (Auto) 0.0 x10^3/uL (0.0-0.2) Prothrombin Time 14.4 SEC (11.7-14.0) Prothromb Time International Ratio 1.2 (0.8-1.1) Sodium Level 141 mmol/L (136-145) Potassium Level 3.8 mmol/L (3.5-5.1) Chloride Level 107 mmol/L (98-107) Carbon Dioxide Level 29 mmol/L (21-32) Anion Gap 5 (6-14) Blood Urea Nitrogen 15 mg/dL (8-26) Creatinine 1.0 mg/dL (0.7-1.3) Estimated GFR (Cockcroft-Gault) 90.7 Glucose Level 156 mg/dL (70-99) Calcium Level 8.1 mg/dL (8.5-10.1) Laboratory Tests Test 11/16/16 13:00 11/16/16 20:20 11/17/16 01:45 11/17/16 08:10 Heparin Anti-Xa Act, Unfractionated 0.29 IU/mL (0.30-0.70) 0.36 IU/mL (0.30-0.70) 0.39 IU/mL (0.30-0.70) 0.43 IU/mL (0.30-0.70) White Blood Count 5.1 x10^3/uL (4.0-11.0) Red Blood Count 3.89 x10^6/uL (4.30-5.70) Hemoglobin 11.9 g/dL (13.0-17.5) Hematocrit 35.9 % (39.0-53.0) Mean Corpuscular Volume 92 fL (79-100) Mean Corpuscular Hemoglobin 31 pg (25-35) Mean Corpuscular Hemoglobin Concent 33 g/dL (31-37) Red Cell Distribution Width 13.8 % (11.5-14.5) Platelet Count 144 x10^3/uL (140-400) Neutrophils (%) (Auto) 44 % (31-73) Lymphocytes (%) (Auto) 40 % (24-48) Monocytes (%) (Auto) 12 % (0-9) Eosinophils (%) (Auto) 3 % (0-3) Basophils (%) (Auto) 0 % (0-3) Neutrophils # (Auto) 2.3 x10^3uL (1.8-7.7) Lymphocytes # (Auto) 2.0 x10^3/uL (1.0-4.8) Monocytes # (Auto) 0.6 x10^3/uL (0.0-1.1) Eosinophils # (Auto) 0.2 x10^3/uL (0.0-0.7) Basophils # (Auto) 0.0 x10^3/uL (0.0-0.2) Prothrombin Time 14.4 SEC (11.7-14.0) Prothromb Time International Ratio 1.2 (0.8-1.1) Sodium Level 141 mmol/L (136-145) Potassium Level 3.8 mmol/L (3.5-5.1) Chloride Level 107 mmol/L (98-107) Carbon Dioxide Level 29 mmol/L (21-32) Anion Gap 5 (6-14) Blood Urea Nitrogen 15 mg/dL (8-26) Creatinine 1.0 mg/dL (0.7-1.3) Estimated GFR (Cockcroft-Gault) 90.7 Glucose Level 156 mg/dL (70-99) Calcium Level 8.1 mg/dL (8.5-10.1) Microbiology 11/13/16 Urine Culture - Final, Complete 11/13/16 Urine Culture Result 1 (JOSE A) - Final, Complete Medications Current Medications Sodium Chloride (Normal Saline Flush) 10 ml QSHIFT PRN IV AFTER MEDS AND BLOOD DRAWS Last administered on 11/13/16 18:05; Start 11/13/16 at 16:00 Sodium Chloride 1,000 ml @ 1,000 mls/hr Q1H IV Last administered on 11/13/16 16:18; Start 11/13/16 at 15:49; Stop 11/13/16 at 16:48; Status DC Sodium Chloride (Normal Saline Flush) 10 ml QSHIFT PRN IV AFTER MEDS AND BLOOD DRAWS Last administered on 11/13/16 16:17; Start 11/13/16 at 16:00; Stop 11/14/16 at 10:35; Status DC Pantoprazole Sodium (Protonix) 40 mg 1X ONCE PO ; Start 11/13/16 at 17:15; Stop 11/13/16 at 17:32; Status DC Famotidine (Pepcid) 20 mg 1X ONCE IVP Last administered on 11/13/16 18:05; Start 11/13/16 at 17:30; Stop 11/13/16 at 17:35; Status DC Ondansetron HCl (Zofran) 4 mg PRN Q8HRS PRN IV NAUSEA/VOMITING; Start 11/13/16 at 18:30; Stop 11/14/16 at 18:29; Status DC Sodium Chloride 1,000 ml @ 125 mls/hr Q8H IV Last administered on 11/14/16 11: 37; Start 11/13/16 at 18:20; Stop 11/14/16 at 18:19; Status DC Pantoprazole Sodium (Protonix) 40 mg DAILYAC PO Last administered on 11/17/16 06:42; Start 11/14/16 at 07:30 Heparin Sodium/ Dextrose 500 ml @ 0 mls/hr CONT PRN IV SEE I/O RECORD Last administered on 11/16/16 01:30; Start 11/13/16 at 20:15 Heparin Sodium (Porcine) (Heparin Sodium) 2,250 unit PRN Q6HRS PRN IV FOR UFH LEVEL LESS THAN 0.2; Start 11/13/16 at 20:15 Baclofen (Lioresal) 10 mg QID PO Last administered on 11/17/16 08:34; Start at 22:00 Docusate Sodium (Colace) 100 mg PRN BID PRN PO CONSTIPATION Last administered on 11/16/16 08:49; Start 11/13/16 at 21:45 Acetaminophen/ Hydrocodone Bitart (Lortab 7.5/325) 2 tab PRN Q4HRS PRN PO SEVERE PAIN Last administered on 11/17/16 08:29; Start 11/13/16 at 21:45 Polyethylene Glycol (miraLAX PACKET) 17 gm DAILY PO Last administered on 08:29; Start 11/14/16 at 09:00 Senna/Docusate Sodium (Senna Plus) 1 tab PRN BID PRN PO CONSTIPATION; Start 11/13/16 at 21:45 Metoprolol Tartrate (Lopressor) 25 mg BID PO Last administered on 11/17/16 08: 31; Start 11/14/16 at 11:00 Morphine Sulfate 2 mg PRN Q4HRS PRN IV PAIN Last administered on 11/14/16 15:50 ; Start 11/14/16 at 15:30; Stop 11/15/16 at 09:58; Status DC Info (Anti-Coagulation Monitoring By Pharmacy) 1 each PRN DAILY PRN MC SEE COMMENTS Last administered on 11/15/16 11:14; Start 11/14/16 at 17:15 Propofol 20 ml @ As Directed STK-MED ONCE IV ; Start 11/14/16 at 17:38; Stop 11/14 at 17:39; Status DC Ringer's Solution 1,000 ml @ 75 mls/hr [id number] IV Last administered on 08:09; Start 11/14/16 at 19:00; Stop 11/15/16 at 09:58; Status DC Warfarin Sodium (Coumadin) 10 mg DAILY16 PO Last administered on 11/16/16 17:15 ; Start 11/15/16 at 16:00 Warfarin Sodium (Coumadin Per Physician) 1 each PRN DAILY PRN MC SEE COMMENTS Last administered on 11/16/16 10:44; Start 11/15/16 at 10:15 Throat Lozenges (Chloraseptic) 1 spray PRN Q2HR PRN PO SORE THROAT Last administered on 11/16/16 08:49; Start 11/16/16 at 08:00 Acetaminophen (Tylenol) 650 mg PRN Q6HRS PRN PO FEVER; Start 11/16/16 at 12:00 Ondansetron HCl (Zofran) 4 mg PRN Q6HRS PRN IV NAUSEA/VOMITING; Start 11/16/16 at 12:00 Morphine Sulfate 2 mg PRN Q2HR PRN IV PAIN; Start 11/16/16 at 12:00 Tramadol HCl (Ultram) 50 mg PRN Q6HRS PRN PO PAIN; Start 11/16/16 at 12:00 Hydralazine HCl (Apresoline) 10 mg PRN Q4HRS PRN IVP ELEVATED BP, SEE COMMENTS ; Start 11/16/16 at 12:00 Docusate Sodium (Colace) 100 mg PRN DAILY PRN PO CONSTIPATION; Start 11/16/16 at 12:00 Active Scripts Active Colace (Docusate Sodium) 100 Mg Capsule 100 Mg PO PRN BID PRN Reported Metoprolol Tartrate 25 Mg Tablet 1 Tab PO BID Miralax (Polyethylene Glycol 3350) 17 Gm Powd.pack 1 Packet PO DAILY Baclofen 10 Mg Tablet 10 Mg PO QID Hydrocodone-Apap 7.5-325 (Hydrocodone Bit/Acetaminophen) 1 Each Tablet 1-2 Tab PO Q4-6HRS Vitals/I & O Vital Sign - Last 24 Hours 11/16/16 11/16/16 11/16/16 11/16/16 15:00 19:00 19:35 21:23 Temp 98.8 98.1 98.8 98.1 Pulse 53 53 60 Resp 18 18 B/P (MAP) 126/56 (79) 139/60 (86) 139/60 Pulse Ox 97 97 O2 Delivery Room Air Room Air Room Air 11/16/16 11/16/16 11/17/16 11/17/16 21:24 23:00 03:00 07:00 Temp 97.7 97.7 100.0 97.7 97.7 100.0 Pulse 54 51 59 Resp 18 20 18 18 B/P (MAP) 125/66 (85) 131/60 (83) 142/55 (84) Pulse Ox 99 97 96 O2 Delivery Room Air Room Air Room Air 11/17/16 11/17/16 11/17/16 11/17/16 08:00 08:29 08:31 09:29 Pulse 18 Resp 18 16 B/P (MAP) 142/55 O2 Delivery Room Air Room Air Intake and Output 11/16/16 11/16/16 11/17/16 15:00 23:00 07:00 Intake Total 400 ml 120 ml 414.93 ml Output Total 600 ml 1200 ml 450 ml Balance -200 ml -1080 ml -35.07 ml STACY LOPEZ MD Nov 17, 2016 11:30
[2016-11-17] MEDS: ANTI-COAG MONITOR BY PHARMACY. MC PRN (14:04)
[2016-11-17 15:00] VITALS: BP 121/53
[2016-11-17] MEDS: WARFARIN 10 MG TABLET. PO SCH (16:15)
[2016-11-17 19:00] VITALS: BP 129/66
[2016-11-17 23:00] VITALS: BP 121/64
[2016-11-18 03:00] VITALS: BP 120/69
[2016-11-18] MEDS: PANTOPRAZOLE 40 MG TABLET.DR. PO SCH (06:37)
[2016-11-18 07:00] VITALS: BP 132/63
[2016-11-18 07:04] LABS: BASO % 1 % (0-3); EOS % 3 % (0-3); HEMATOCRIT 39.8 % (39.0-53.0); LYMPH # 1.8 x10^3/uL (1.0-4.8); LYMPH % 36 % (24-48); MEAN CORPUSCULAR HEMOGLOBIN 30 pg (25-35); MEAN CORPUSCULAR HGB CONC 33 g/dL (31-37); MEAN CORPUSCULAR VOLUME 93 fL (79-100); MONO % 12 % (0-9); NEUT % 49 % (31-73); PLATELET COUNT 157 x10^3/uL (140-400); RED BLOOD COUNT 4.27 x10^6/uL (4.30-5.70)
[2016-11-18 07:11] LABS: INR 1.2 (0.8-1.1); PROTHROMBIN TIME PATIENT 14.9 SEC (11.7-14.0)
[2016-11-18 07:12] LABS: CALCIUM 8.4 mg/dL (8.5-10.1); CREATININE 1.1 mg/dL (0.7-1.3); GFR 81.3; POTASSIUM 4.1 mmol/L (3.5-5.1)
[2016-11-18] MEDS: HYDROcodone/APAP 7.5/325MG 1 TAB TABLET PO PRN (08:38)
[2016-11-18] MEDS: BACLOFEN 10 MG TABLET. PO SCH (08:38)
[2016-11-18] MEDS: METOPROLOL TART IMMED RELEASE 25 MG TABLET. PO SCH (08:39)
[2016-11-18] MEDS: POLYETHYLENE GLYCOL 3350 17 GM PACKET. PO SCH (08:41)
[2016-11-18] MEDS ORDERED: METO25TA4 PO (09:29)
[2016-11-18] MEDS ORDERED: ENOX100D3 SQ (09:29)
[2016-11-18 11:00] VITALS: BP 128/69
--- NOTE | 2016-11-18 11:20 | PDOC ---
Subjective: Subjective: Feeling good, ready to go home. Objective: Objective: D/w RN via phone earlier this morning, DC planned. Vital Signs: Vital Signs Date Time Temp Pulse Resp B/P (MAP) Pulse Ox O2 Delivery O2 Flow Rate FiO2 11/18/16 10:43 Room Air 11/18/16 08:39 60 120/69 11/18/16 07:00 97.7 18 98 97.7 Labs: Laboratory Tests Test 11/18/16 06:50 White Blood Count 5.0 x10^3/uL Red Blood Count 4.27 x10^6/uL Hemoglobin 13.0 g/dL Hematocrit 39.8 % Mean Corpuscular Volume 93 fL Mean Corpuscular Hemoglobin 30 pg Mean Corpuscular Hemoglobin Concent 33 g/dL Red Cell Distribution Width 14.0 % Platelet Count 157 x10^3/uL Neutrophils (%) (Auto) 49 % Lymphocytes (%) (Auto) 36 % Monocytes (%) (Auto) 12 % Eosinophils (%) (Auto) 3 % Basophils (%) (Auto) 1 % Neutrophils # (Auto) 2.5 x10^3uL Lymphocytes # (Auto) 1.8 x10^3/uL Monocytes # (Auto) 0.6 x10^3/uL Eosinophils # (Auto) 0.1 x10^3/uL Basophils # (Auto) 0.0 x10^3/uL Prothrombin Time 14.9 SEC Prothromb Time International Ratio 1.2 Sodium Level 144 mmol/L Potassium Level 4.1 mmol/L Chloride Level 108 mmol/L Carbon Dioxide Level 31 mmol/L Anion Gap 5 Blood Urea Nitrogen 16 mg/dL Creatinine 1.1 mg/dL Estimated GFR (Cockcroft-Gault) 81.3 Glucose Level 95 mg/dL Calcium Level 8.4 mg/dL PE: GEN: NAD LUNGS: CTAB HEART: RRR +murm ABD: NABS, S/ND/NT NEURO/PSYCH: A & O 3 A/P: Dark stools - resolved -EGD (Dr. Anderson) w/ non-erosive gastritis, colonoscopy (Dr. Ramírez) w/ cecal ulcers/path ischemic colitis -Hgb improved -h/o MVR on Coumadin + Lovenox -on PPI -- DC per primary. CTA if bleeding resumes in the future. ZENA GU Nov 18, 2016 11:20
--- NOTE | 2016-11-18 11:42 | PDOC3 ---
Discharge Summary [facility] Date of Admission: Nov 13, 2016 Discharge Date: Nov 18, 2016 Admitting Diagnosis 1. Melena: EGD on 11/14 with nonerosive gastritis. on PPI. has recent scope by Dr. Ramírez with cecal ischemic colitis 2. Anemia with chronic dz and melena 3. OAC: on coumadin for mechanical mitral valve at home 4. [facility] MVR: echo in 07/2015 with EF 55%, no significant regurg 5. HTN 6. HLD PAFIB, sinus now Problems: Final Diagnosis CONSULTS gi card Procedures EGD Brief Hospital Course Mr. Lin is a 66 old M, on coumadin 10mg daily for MVR, came for melena. recent colonoscopy showed cecal ischemic colitis. EGD here showed non erosive gastritis. Pt hb stable,no melena any more, with heparin drip bridging with restarting coumadin. INR still low at 1.2. dc pt home with lovenox 100mg sq bid, cont coumadin daily, INR daily, stop lovenox if INR >2.5, fu with pcp next week. pt check iNR at home himself and understands. dc time 35min. General: Alert, Oriented X3, Cooperative, No acute distress Heart: Regular rate (SR), Other (3/6 systolic murmur to TEJAL border; mechan click ) Lungs: Clear Abdomen: Normal bowel sounds, Soft, No tenderness Extremities: No cyanosis, No edema Skin: No breakdown, No significant lesion Problems: Disposition home CONDITION AT DISCHARGE: Improved Diet cardiac Scheduled Baclofen (Baclofen), 10 MG PO QID, (Reported) Enoxaparin Sodium (Enoxaparin Sodium), 100 MG SQ Q12HR Hydrocodone Bit/Acetaminophen (Hydrocodone-Apap 7.5-325 ), 1-2 TAB PO Q4-6HRS , (Reported) Metoprolol Tartrate (Metoprolol Tartrate), 12.5 MG PO BID Polyethylene Glycol 3350 (Miralax), 1 PACKET PO DAILY, (Reported) Scheduled PRN Docusate Sodium (Colace), 100 MG PO PRN BID PRN for CONSTIPATION Discontinued Medications Cyclobenzaprine Hcl (Cyclobenzaprine Hcl), 1 TAB PO TID, (Reported) Metoprolol Tartrate (Metoprolol Tartrate), 1 TAB PO BID, (Reported) Follow Up pcp next week STACY LOPEZ MD Nov 18, 2016 11:41
[2016-11-18] MEDS ORDERED: METOPROLOL TART IMMED RELEASE 25 MG TABLET. PO SCH (21:00)
== END 2016-11-18 11:40 | disposition home or self-care (01) | DRG 392 ==
LOC: ER 15:12 → 4 NORTH 17:07
PROVIDERS: ADMIT Internal Medicine; ATTEND Internal Medicine
PROC: 0DJ08ZZ Inspection of Upper Intestinal Tract, Via Natural or Artificial Opening Endoscopic (ICD-10-PCS; principal; 2016-11-14 17:30)
DX: K29.70 Gastritis, unspecified, without bleeding (principal); I48.92 Unspecified atrial flutter; K55.9 Vascular disorder of intestine, unspecified; K51.90 Ulcerative colitis, unspecified, without complications; E78.5 Hyperlipidemia, unspecified; I11.0 Hypertensive heart disease with heart failure; I25.10 Atherosclerotic heart disease of native coronary artery without angina pectoris; I50.9 Heart failure, unspecified; D64.9 Anemia, unspecified; M19.90 Unspecified osteoarthritis, unspecified site; Z95.2 Presence of prosthetic heart valve; Z87.891 Personal history of nicotine dependence; I48.0 Paroxysmal atrial fibrillation
CPT/HCPCS: 36415; 80048; 80053; 80076; 81001; 82274; 83690; 83735; 83880; 84443; 84484; 85027; 85520; 85610; 85730; 86850; 86900; 86901; 87086; 93005; 96361; 96374; J1650; J2270; J2704; J7030; J7120; S0028; 99285-25